=== PATIENT | female | born 1950 | race Caucasian/White ===

== ENCOUNTER → 2018-04-26 | Outpatient (CLI) | payer MEDICARE, MEDICAID ==
[~2018-04-26] MED LIST: OMNIPAQUE 350 MG/ML, 100ML BOTTLE ONE
== END | disposition home or self-care (01) ==
LOC: RAD 15:32
PROVIDERS: ATTEND Nurse Practitioner Family
DX: J90 Pleural effusion, not elsewhere classified (principal); M79.89 Other specified soft tissue disorders
CPT/HCPCS: 70491; Q9967

== ENCOUNTER → 2018-04-28 | Outpatient (CLI) | payer MEDICARE, MEDICAID | END | disposition home or self-care (01) | LOC: RAD 12:26 | PROVIDERS: ATTEND Nurse Practitioner Family | DX: J90 Pleural effusion, not elsewhere classified (principal); L72.3 Sebaceous cyst; N28.89 Other specified disorders of kidney and ureter; K62.89 Other specified diseases of anus and rectum; N28.1 Cyst of kidney, acquired; R18.8 Other ascites; N85.2 Hypertrophy of uterus | CPT/HCPCS: 71260; 74177; Q9967 ==

== ENCOUNTER → 2018-05-04 | Outpatient (CLI) | payer MEDICARE, MEDICAID ==
[~2018-05-04] MED LIST changes: +LIDOCAINE-MPF 1%, 5ML ONE; -OMNIPAQUE 350 MG/ML, 100ML BOTTLE ONE
== END | disposition home or self-care (01) ==
LOC: RAD 14:14
PROVIDERS: ATTEND Nurse Practitioner Family
DX: C41.0 Malignant neoplasm of bones of skull and face (principal)
CPT/HCPCS: 20206; 76942; 88305; 88333; 88341; 88342; G0461

== ENCOUNTER → 2018-05-18 | Outpatient (CLI) | payer MEDICARE, MEDICAID | END | disposition home or self-care (01) | LOC: ROC 10:00 | PROVIDERS: ATTEND Radiology Radiation Oncology | DX: C78.5 Secondary malignant neoplasm of large intestine and rectum (principal) | CPT/HCPCS: G0463 ==

== ENCOUNTER 2018-05-26 09:20 | Inpatient (IN) | payer MEDICARE, MEDICAID ==
[2018-05-25 13:08] LABS: BASOPHILS # (AUTO) 0.03 x10^3/uL (0-0.1); BASOPHILS % (AUTO) 0 % (0-1); EOSINOPHILS # (AUTO) 0.44 x10^3/uL (0-0.4); EOSINOPHILS % (AUTO) 5 % (1-7); LYMPHOCYTES # (AUTO) 1.55 x10^3/uL (1-3.4); LYMPHOCYTES % (AUTO) 16 % (22-44); MD NO; MEAN CORPUSCULAR HEMOGLOBIN 29.2 pg (27.0-34.8); MEAN CORPUSCULAR HGB CONC 33.8 g/dL (32.4-35.8); MEAN CORPUSCULAR VOLUME 86.4 fL (80-100); MEAN PLATELET VOLUME 6.6 fL (7.4-10.4); MONOCYTES # (AUTO) 0.46 x10^3/uL (0.2-0.8); MONOCYTES % (AUTO) 5 % (2-9); NEUTROPHILS # (AUTO) 7.06 x10^3/uL (1.8-6.8); NEUTROPHILS % (AUTO) 74 % (42-75); PLATELET COUNT 459 x10^3/uL (130-400); RED BLOOD COUNT 5.18 x10^6/uL (3.82-5.3); RED CELL DISTRIBUTION WIDTH 15.7 % (9.6-15.2)
[2018-05-25 13:21] LABS: ALBUMIN 3.5 g/dL (3.4-5.0); ANION GAP 11 mmol/L (5-15); CALCIUM 9.4 mg/dL (8.5-10.1); CHLORIDE 101 mmol/L (98-107)
[2018-05-25 13:25] LABS: ALANINE AMINOTRANSFERASE 24 U/L (12-78); ALKALINE PHOSPHATASE 193 U/L (45-117); BILIRUBIN,TOTAL 0.6 mg/dL (0.2-1.0); CREATININE 0.78 mg/dL (0.55-1.02); TOTAL PROTEIN 8.2 g/dL (6.4-8.2)
[~2018-05-26] VITALS: Ht 157.5 cm; Wt 107.8 kg
[~2018-05-26 09:20] MED LIST changes: +CHLO50TA PO; +CHOL500050 PO; +HYDR-3240 PO; +IBUP-1623 PO; +LEVO112T41 PO; -LIDOCAINE-MPF 1%, 5ML ONE; +POTA99TA8 PO; +SILYMARIN PO; +TURMERIC PO; +VENL75CA PO
[2018-05-26] MEDS ORDERED: FENTANYL PF 100 MCG/2ML ONE ×4 (11:13→16:25)
[2018-05-26] MEDS ORDERED: MIDAZOLAM 1 MG/ML, 2ML ONE (11:13)
[2018-05-26] MEDS ORDERED: DEXAMETHASONE 4 MG/ML, 1ML ONE ×2 (11:14)
[2018-05-26] MEDS ORDERED: ROCURONIUM 10MG/ML,5ML ONE (11:14)
[2018-05-26] MEDS ORDERED: SUCCINYLCHOLINE 20 MG/ML, 10ML ONE (11:14)
[2018-05-26] MEDS ORDERED: LACTATED RINGERS 1,000 ML IV SCH (11:56)
[2018-05-26 12:00] VITALS: BP 152/86
[2018-05-26] MEDS ORDERED: HEPARIN 1,000 UNITS/ML, 10ML ONE (13:22)
[2018-05-26] MEDS ORDERED: BUPIVACAINE/PF 0.5% ONE (13:22)
[2018-05-26] MEDS ORDERED: MORPHINE SULFATE 4 MG/ML, 1ML IVPush PRN (14:30)
[2018-05-26] MEDS ORDERED: LORazepam 2 MG/ML, 1ML IVPush PRN (14:30)
[2018-05-26] MEDS ORDERED: DIPHENHYDRAMINE 50 MG/ML, 1ML IVPush PRN (14:30)
[2018-05-26] MEDS ORDERED: PROCHLORPERAZINE 5 MG/ML, 2ML IV PRN (14:30)
[2018-05-26] MEDS ORDERED: MEPERIDINE/PF 25MG/0.5ML IVPush PRN (14:30)
[2018-05-26] MEDS ORDERED: MIDAZOLAM 1 MG/ML, 2ML IV PRN (14:30)
[2018-05-26] MEDS ORDERED: LABETALOL 5MG/ML, 20ML IV PRN (14:30)
[2018-05-26] MEDS ORDERED: hydrALAzine 20 MG/ML, 1ML IV PRN (14:30)
[2018-05-26] MEDS ORDERED: ALBUTEROL/IPRATROPIUM 2.5MG/0.5MG, 3 ML NPPB PRN (14:30)
[2018-05-26] MEDS ORDERED: SCOPOLAMINE PATCH, 1.5MG PATCH.TD72 TD PRN (14:30)
[2018-05-26] MEDS ORDERED: ONDANSETRON 2MG/ML, 2ML ONE (14:49)
[2018-05-26] MEDS ORDERED: NEOSTIGMINE 1 MG/ML, 10ML ONE (15:18)
[2018-05-26] MEDS: FENTANYL PF 100 MCG/2ML IV PRN ×2 (15:43→16:32)
[2018-05-26] MEDS ORDERED: HYDROmorphone 2 MG/ML, 1ML ONE (15:43)
[2018-05-26] MEDS: HYDROmorphone 1 MG/ML, 1ML IV PRN ×5 (15:46→16:45)
[2018-05-26] MEDS ORDERED: LORazepam 2 MG/ML, 1ML ONE (16:17)
[2018-05-26] MEDS ORDERED: MORPHINE SULFATE 4 MG/ML, 1ML IV PRN (18:00)
[2018-05-26] MEDS: D5%-0.45NACL+KCL 20MEQ 1,000 ML IV SCH (18:46)
[2018-05-26] MEDS: MORPHINE 30MG/30ML PCA.SYR IV PRN (18:57)
[2018-05-26 20:04] VITALS: BP 147/74
[2018-05-26 23:56] VITALS: BP 125/75
[2018-05-27 03:06] VITALS: BP 120/67
[2018-05-27] MEDS: D5%-0.45NACL+KCL 20MEQ 1,000 ML IV SCH ×2 (04:38→21:27)
[2018-05-27 05:30] LABS: ALBUMIN 2.8 g/dL (3.4-5.0); ANION GAP 11 mmol/L (5-15); CALCIUM 8.2 mg/dL (8.5-10.1); CHLORIDE 102 mmol/L (98-107)
[2018-05-27 05:33] LABS: BASOPHILS # (AUTO) 0.03 x10^3/uL (0-0.1); BASOPHILS % (AUTO) 0 % (0-1); EOSINOPHILS # (AUTO) 0.12 x10^3/uL (0-0.4); EOSINOPHILS % (AUTO) 1 % (1-7); LYMPHOCYTES # (AUTO) 1.45 x10^3/uL (1-3.4); LYMPHOCYTES % (AUTO) 12 % (22-44); MD NO; MEAN CORPUSCULAR HEMOGLOBIN 28.5 pg (27.0-34.8); MEAN CORPUSCULAR HGB CONC 33.1 g/dL (32.4-35.8); MEAN CORPUSCULAR VOLUME 86.1 fL (80-100); MEAN PLATELET VOLUME 6.7 fL (7.4-10.4); MONOCYTES # (AUTO) 0.77 x10^3/uL (0.2-0.8); MONOCYTES % (AUTO) 7 % (2-9); NEUTROPHILS # (AUTO) 9.26 x10^3/uL (1.8-6.8); NEUTROPHILS % (AUTO) 80 % (42-75); PLATELET COUNT 369 x10^3/uL (130-400); RED BLOOD COUNT 4.44 x10^6/uL (3.82-5.3); RED CELL DISTRIBUTION WIDTH 15.9 % (9.6-15.2)
[2018-05-27 05:35] LABS: ALANINE AMINOTRANSFERASE 18 U/L (12-78); ALKALINE PHOSPHATASE 153 U/L (45-117); BILIRUBIN,TOTAL 0.5 mg/dL (0.2-1.0); CREATININE 0.61 mg/dL (0.55-1.02); TOTAL PROTEIN 6.7 g/dL (6.4-8.2)
[2018-05-27] MEDS: LEVOTHYROXINE 50 MCG TABLET PO SCH (06:00)
[2018-05-27 08:14] VITALS: BP 123/69
[2018-05-27] MEDS ORDERED: POTASSIUM CHLORIDE 40 MEQ in SODIUM CHLORIDE 0.9% 500 ML IV SCH (08:30)
[2018-05-27] MEDS: CHLORTHALIDONE 25 MG TABLET PO SCH (08:45)
[2018-05-27] MEDS: ENOXAPARIN 30 MG/0.3 ML SQ SCH ×2 (08:46→20:30)
[2018-05-27] MEDS ORDERED: VENLAFAXINE 75 MG CAP ER PO SCH (09:00)
[2018-05-27] MEDS: MORPHINE 30MG/30ML PCA.SYR IV PRN ×2 (10:30→23:54)
[2018-05-27 15:54] VITALS: BP 130/69
[2018-05-27] MEDS: VENLAFAXINE 75 MG CAP ER PO SCH (20:30)
[2018-05-27 20:44] VITALS: BP 136/69
[2018-05-27] MEDS: DIPHENHYDRAMINE 25 MG CAPSULE PO PRN (21:27)
[2018-05-27] MEDS: ONDANSETRON 2MG/ML, 2ML IV PRN (22:57)
[2018-05-28 01:30] VITALS: BP 161/87
[2018-05-28] MEDS: LEVOTHYROXINE 50 MCG TABLET PO SCH (05:27)
[2018-05-28 05:42] LABS: ANION GAP 9 mmol/L (5-15); CALCIUM 8.4 mg/dL (8.5-10.1); CHLORIDE 101 mmol/L (98-107)
[2018-05-28 05:43] LABS: CREATININE 0.59 mg/dL (0.55-1.02)
[2018-05-28] MEDS: D5%-0.45NACL+KCL 20MEQ 1,000 ML IV SCH ×2 (06:22→17:17)
[2018-05-28] MEDS: ONDANSETRON 2MG/ML, 2ML IV PRN (06:31)
[2018-05-28 08:35] VITALS: BP 137/74
[2018-05-28] MEDS: CHLORTHALIDONE 25 MG TABLET PO SCH (08:49)
[2018-05-28] MEDS: ENOXAPARIN 30 MG/0.3 ML SQ SCH ×2 (08:50→20:15)
[2018-05-28] MEDS: POTASSIUM CHLORIDE 20 MEQ TAB.ER.PRT PO SCH ×2 (11:54→17:16)
[2018-05-28 15:50] VITALS: BP 160/77
[2018-05-28 19:16] VITALS: BP 147/75
[2018-05-28] MEDS: VENLAFAXINE 75 MG CAP ER PO SCH (20:16)
[2018-05-28] MEDS: DIPHENHYDRAMINE 25 MG CAPSULE PO PRN (21:08)
[2018-05-29 02:04] VITALS: BP 142/78
[2018-05-29 05:56] LABS: ANION GAP 10 mmol/L (5-15); CALCIUM 8.3 mg/dL (8.5-10.1); CHLORIDE 100 mmol/L (98-107)
[2018-05-29 05:58] LABS: CREATININE 0.44 mg/dL (0.55-1.02)
[2018-05-29] MEDS: LEVOTHYROXINE 50 MCG TABLET PO SCH (06:00)
[2018-05-29] MEDS: D5%-0.45NACL+KCL 20MEQ 1,000 ML IV SCH (06:10)
[2018-05-29 08:02] VITALS: BP 139/76
[2018-05-29] MEDS: CHLORTHALIDONE 25 MG TABLET PO SCH (08:06)
[2018-05-29] MEDS: ENOXAPARIN 30 MG/0.3 ML SQ SCH ×2 (08:06→20:42)
[2018-05-29] MEDS: POTASSIUM CHLORIDE 20 MEQ TAB.ER.PRT PO SCH ×3 (08:06→17:05)
[2018-05-29] MEDS ORDERED: POTASSIUM CHLORIDE 30 MEQ in SODIUM CHLORIDE 0.9% 500 ML IV ONE (12:00)
[2018-05-29 13:29] VITALS: BP 147/77
[2018-05-29] MEDS: OXYcodone/APAP 10/325MG TABLET PO PRN ×2 (14:20→20:43)
[2018-05-29] MEDS: D5%-0.45NACL+KCL 40MEQ 1,000 ML IV SCH (15:44)
[2018-05-29 20:15] VITALS: BP 150/87
[2018-05-29] MEDS: VENLAFAXINE 75 MG CAP ER PO SCH (20:42)
[2018-05-30 03:20] VITALS: BP 165/94
[2018-05-30] MEDS: OXYcodone/APAP 10/325MG TABLET PO PRN ×4 (04:26→23:21)
[2018-05-30] MEDS: D5%-0.45NACL+KCL 40MEQ 1,000 ML IV SCH ×2 (04:53→23:36)
[2018-05-30] MEDS ORDERED: LEVOTHYROXINE 25 MCG TABLET ONE (05:34)
[2018-05-30] MEDS: LEVOTHYROXINE 50 MCG TABLET PO SCH (05:36)
[2018-05-30 07:37] VITALS: BP 162/87
[2018-05-30] MEDS: CHLORTHALIDONE 25 MG TABLET PO SCH (07:57)
[2018-05-30] MEDS: ENOXAPARIN 30 MG/0.3 ML SQ SCH ×2 (07:57→19:59)
[2018-05-30] MEDS: POTASSIUM CHLORIDE 20 MEQ TAB.ER.PRT PO SCH ×3 (09:43→17:10)
[2018-05-30] MEDS ORDERED: POTASSIUM CHLORIDE 40 MEQ in SODIUM CHLORIDE 0.9% 500 ML IV ONE (10:30)
[2018-05-30 12:58] VITALS: BP 154/81
[2018-05-30 19:37] VITALS: BP 151/84
[2018-05-30] MEDS: VENLAFAXINE 75 MG CAP ER PO SCH (19:59)
[2018-05-31 02:19] VITALS: BP 127/58
[2018-05-31] MEDS ORDERED: LEVOTHYROXINE 25 MCG TABLET ONE (05:36)
[2018-05-31] MEDS: OXYcodone/APAP 10/325MG TABLET PO PRN ×4 (05:38→23:12)
[2018-05-31] MEDS: LEVOTHYROXINE 50 MCG TABLET PO SCH (05:38)
[2018-05-31 05:43] LABS: ANION GAP 8 mmol/L (5-15); CALCIUM 8.7 mg/dL (8.5-10.1); CHLORIDE 102 mmol/L (98-107); CREATININE 0.51 mg/dL (0.55-1.02)
[2018-05-31 06:59] VITALS: BP 146/79
[2018-05-31 08:12] VITALS: BP 154/86
[2018-05-31] MEDS: ENOXAPARIN 30 MG/0.3 ML SQ SCH ×2 (08:14→21:32)
[2018-05-31] MEDS: POTASSIUM CHLORIDE 20 MEQ TAB.ER.PRT PO SCH ×3 (08:14→17:46)
[2018-05-31] MEDS: CHLORTHALIDONE 25 MG TABLET PO SCH (08:15)
[2018-05-31] MEDS: SODIUM CHLORIDE FLUSH 10ML SYR IVF SCH ×2 (11:39→21:32)
[2018-05-31 13:36] VITALS: BP 146/84
[2018-05-31 20:33] VITALS: BP 132/81
[2018-05-31] MEDS: VENLAFAXINE 75 MG CAP ER PO SCH (21:32)
[2018-06-01 02:41] VITALS: BP 136/73
[2018-06-01 05:12] LABS: ANION GAP 12 mmol/L (5-15); CALCIUM 8.8 mg/dL (8.5-10.1); CHLORIDE 100 mmol/L (98-107); CREATININE 0.51 mg/dL (0.55-1.02)
[2018-06-01] MEDS: LEVOTHYROXINE 50 MCG TABLET PO SCH (06:09)
[2018-06-01 07:53] VITALS: BP 157/80
[2018-06-01] MEDS: POTASSIUM CHLORIDE 20 MEQ TAB.ER.PRT PO SCH ×3 (07:57→16:53)
[2018-06-01] MEDS: CHLORTHALIDONE 25 MG TABLET PO SCH (07:58)
[2018-06-01] MEDS: ENOXAPARIN 30 MG/0.3 ML SQ SCH ×2 (07:58→19:44)
[2018-06-01] MEDS: SODIUM CHLORIDE FLUSH 10ML SYR IVF SCH ×2 (08:00→19:44)
[2018-06-01] MEDS: OXYcodone/APAP 10/325MG TABLET PO PRN ×3 (11:08→21:57)
[2018-06-01 14:05] VITALS: BP 138/70
[2018-06-01] MEDS: MORPHINE SULFATE 4 MG/ML, 1ML IV PRN ×3 (15:51→23:06)
[2018-06-01] MEDS: D5%-0.45NACL+KCL 20MEQ 1,000 ML IV SCH (16:51)
[2018-06-01] MEDS: VENLAFAXINE 75 MG CAP ER PO SCH (19:44)
[2018-06-01 20:21] VITALS: BP 108/75
[2018-06-02 02:20] VITALS: BP 112/78
[2018-06-02] MEDS: MORPHINE SULFATE 4 MG/ML, 1ML IV PRN ×5 (02:27→16:05)
[2018-06-02] MEDS: D5%-0.45NACL+KCL 20MEQ 1,000 ML IV SCH ×2 (02:33→12:41)
[2018-06-02] MEDS: LEVOTHYROXINE 50 MCG TABLET PO SCH ×2 (04:32→08:52)
[2018-06-02 07:05] VITALS: BP 167/82
[2018-06-02 07:58] VITALS: BP 136/75
[2018-06-02] MEDS: POTASSIUM CHLORIDE 20 MEQ TAB.ER.PRT PO SCH ×3 (08:00→17:00)
[2018-06-02] MEDS: OXYcodone/APAP 10/325MG TABLET PO PRN (08:01)
[2018-06-02] MEDS: CHLORTHALIDONE 25 MG TABLET PO SCH (08:03)
[2018-06-02] MEDS: SODIUM CHLORIDE FLUSH 10ML SYR IVF SCH ×2 (08:06→21:00)
[2018-06-02] MEDS: ENOXAPARIN 30 MG/0.3 ML SQ SCH (08:06)
[2018-06-02] MEDS ORDERED: LEVOTHYROXINE 25 MCG TABLET ONE (08:45)
[2018-06-02] MEDS ORDERED: LEVOTHYROXINE 50 MCG TABLET PO ONE (09:30)
[2018-06-02] MEDS ORDERED: PHENYLEPHRINE 10 MG/ML ONE (09:53)
[2018-06-02 09:59] LABS: BASOPHILS # (AUTO) 0.01 x10^3/uL (0-0.1); BASOPHILS % (AUTO) 0 % (0-1); EOSINOPHILS # (AUTO) 0.39 x10^3/uL (0-0.4); EOSINOPHILS % (AUTO) 4 % (1-7); LYMPHOCYTES % (AUTO) 12 % (22-44); MD NO; MEAN CORPUSCULAR HEMOGLOBIN 29.3 pg (27.0-34.8); MEAN CORPUSCULAR HGB CONC 33.9 g/dL (32.4-35.8); MEAN CORPUSCULAR VOLUME 86.2 fL (80-100); MEAN PLATELET VOLUME 6.7 fL (7.4-10.4); MONOCYTES # (AUTO) 0.61 x10^3/uL (0.2-0.8); MONOCYTES % (AUTO) 6 % (2-9); NEUTROPHILS # (AUTO) 7.39 x10^3/uL (1.8-6.8); NEUTROPHILS % (AUTO) 78 % (42-75); PLATELET COUNT 282 x10^3/uL (130-400); RED BLOOD COUNT 3.85 x10^6/uL (3.82-5.3); RED CELL DISTRIBUTION WIDTH 15.8 % (9.6-15.2)
[2018-06-02 10:12] LABS: ANION GAP 9 mmol/L (5-15); CALCIUM 8.2 mg/dL (8.5-10.1); CHLORIDE 101 mmol/L (98-107)
[2018-06-02 10:21] LABS: CREATININE 0.46 mg/dL (0.55-1.02)
[2018-06-02 13:30] VITALS: BP 149/85
[2018-06-02] MEDS ORDERED: MIDAZOLAM 1 MG/ML, 2ML ONE ×2 (16:17→19:34)
[2018-06-02] MEDS ORDERED: FENTANYL PF 250 MCG/5ML ONE (16:18)
[2018-06-02] MEDS ORDERED: CEFOTETAN PMX 2GM/50ML 50 ML ONE (16:54)
[2018-06-02] MEDS ORDERED: MEPERIDINE/PF 25MG/0.5ML IVPush PRN (17:30)
[2018-06-02] MEDS ORDERED: SCOPOLAMINE PATCH, 1.5MG PATCH.TD72 TD PRN (17:30)
[2018-06-02] MEDS ORDERED: ONDANSETRON 2MG/ML, 2ML IV PRN ×2 (17:30→22:00)
[2018-06-02] MEDS ORDERED: ACETAMINOPHEN 325 MG TABLET PO PRN (17:30)
[2018-06-02] MEDS ORDERED: LABETALOL 5MG/ML, 20ML IV PRN (17:30)
[2018-06-02] MEDS ORDERED: OXYcodone 5 MG/5 ML ORAL.SOL UDC PO PRN (17:30)
[2018-06-02] MEDS ORDERED: hydrALAzine 20 MG/ML, 1ML IV PRN (17:30)
[2018-06-02] MEDS ORDERED: MIDAZOLAM 1 MG/ML, 2ML IV PRN (17:30)
[2018-06-02] MEDS ORDERED: ALBUTEROL/IPRATROPIUM 2.5MG/0.5MG, 3 ML NPPB PRN (17:30)
[2018-06-02] MEDS ORDERED: EPHEDRINE 50 MG/ML, 1ML IM PRN (17:30)
[2018-06-02] MEDS ORDERED: PROPOFOL 10 MG/ML, 20ML ONE (18:56)
[2018-06-02] MEDS ORDERED: ROCURONIUM 10MG/ML,5ML ONE (18:56)
[2018-06-02] MEDS ORDERED: GLYCOPYRROLATE 0.2MG/1ML, 5ML ONE (18:56)
[2018-06-02] MEDS ORDERED: NEOSTIGMINE 1 MG/ML, 10ML ONE (18:56)
[2018-06-02] MEDS ORDERED: DEXAMETHASONE 4 MG/ML, 1ML ONE (18:56)
[2018-06-02] MEDS ORDERED: SUCCINYLCHOLINE 20 MG/ML, 10ML ONE (18:56)
[2018-06-02] MEDS ORDERED: ONDANSETRON 2MG/ML, 2ML ONE (18:56)
[2018-06-02] MEDS ORDERED: BUPIVACAINE/PF 0.5% ONE (18:57)
[2018-06-02] MEDS ORDERED: FENTANYL PF 100 MCG/2ML ONE ×2 (19:22→19:41)
[2018-06-02] MEDS ORDERED: ACETAMINOPHEN 650 MG/20.3 ML UDC ONE (19:22)
[2018-06-02] MEDS ORDERED: OXYcodone 5 MG/5 ML ORAL.SOL UDC ONE (19:22)
[2018-06-02] MEDS: FENTANYL PF 100 MCG/2ML IV PRN ×4 (19:25→19:54)
[2018-06-02] MEDS ORDERED: HYDROmorphone 2 MG/ML, 1ML ONE ×2 (19:26→20:05)
[2018-06-02] MEDS: HYDROmorphone 2 MG/ML, 1ML IV PRN ×5 (19:28→20:36)
[2018-06-02] MEDS ORDERED: MEPERIDINE/PF 50 MG/ML ONE (20:05)
[2018-06-02 21:00] VITALS: BP 107/69
[2018-06-02] MEDS ORDERED: D5%-0.45NACL+KCL 40MEQ 1,000 ML IV SCH (21:30)
[2018-06-02] MEDS: FAMOTIDINE 20 MG/2 ML IVPush SCH (22:22)
[2018-06-02 23:46] VITALS: BP 104/61
[2018-06-03] MEDS: MORPHINE SULFATE 4 MG/ML, 1ML IV PRN ×2 (01:32→03:40)
[2018-06-03 01:39] VITALS: BP 116/64
[2018-06-03] MEDS: CEFOTETAN PMX 2GM/50ML 50 ML IV SCH ×2 (03:58→15:19)
[2018-06-03 04:05] VITALS: BP 110/65
[2018-06-03 06:05] LABS: BASOPHILS % (AUTO) 0 % (0-1); EOSINOPHILS # (AUTO) 0.01 x10^3/uL (0-0.4); EOSINOPHILS % (AUTO) 0 % (1-7); LYMPHOCYTES # (AUTO) 0.95 x10^3/uL (1-3.4); LYMPHOCYTES % (AUTO) 6 % (22-44); MD NO; MEAN CORPUSCULAR HEMOGLOBIN 28.9 pg (27.0-34.8); MEAN CORPUSCULAR HGB CONC 33.5 g/dL (32.4-35.8); MEAN CORPUSCULAR VOLUME 86.3 fL (80-100); MEAN PLATELET VOLUME 7.5 fL (7.4-10.4); MONOCYTES # (AUTO) 0.58 x10^3/uL (0.2-0.8); MONOCYTES % (AUTO) 4 % (2-9); NEUTROPHILS # (AUTO) 14.84 x10^3/uL (1.8-6.8); NEUTROPHILS % (AUTO) 91 % (42-75); PLATELET COUNT 307 x10^3/uL (130-400); RED BLOOD COUNT 4.12 x10^6/uL (3.82-5.3); RED CELL DISTRIBUTION WIDTH 15.9 % (9.6-15.2)
[2018-06-03 06:10] LABS: ALBUMIN 1.6 g/dL (3.4-5.0); ANION GAP 9 mmol/L (5-15); CALCIUM 7.8 mg/dL (8.5-10.1); CHLORIDE 102 mmol/L (98-107)
[2018-06-03 06:15] LABS: ALANINE AMINOTRANSFERASE 15 U/L (12-78); ALKALINE PHOSPHATASE 127 U/L (45-117); BILIRUBIN,TOTAL 0.3 mg/dL (0.2-1.0); CREATININE 1.15 mg/dL (0.55-1.02); TOTAL PROTEIN 5.7 g/dL (6.4-8.2)
[2018-06-03] MEDS: LEVOTHYROXINE 112 MCG TABLET PO SCH (06:47)
[2018-06-03] MEDS: SODIUM CHLORIDE FLUSH 10ML SYR IVF SCH ×2 (08:16→22:28)
[2018-06-03 09:13] VITALS: BP 110/70
[2018-06-03] MEDS: FAMOTIDINE 20 MG/2 ML IVPush SCH ×2 (10:03→22:27)
[2018-06-03] MEDS: D5%-0.45NACL+KCL 20MEQ 1,000 ML IV SCH ×2 (11:30→23:35)
[2018-06-03 15:35] VITALS: BP 118/70
[2018-06-03] MEDS ORDERED: SODIUM CHLORIDE 0.9%, 500ML IVBOLUS ONE (18:00)
[2018-06-03 20:00] VITALS: BP 110/64
[2018-06-03] MEDS: VENLAFAXINE 75 MG CAP ER PO SCH (22:27)
[2018-06-03] MEDS: CHLORTHALIDONE 25 MG TABLET PO SCH (23:14)
[2018-06-04 01:27] VITALS: BP 131/73
[2018-06-04 04:05] VITALS: BP 128/72
[2018-06-04] MEDS: CEFOTETAN PMX 2GM/50ML 50 ML IV SCH ×2 (04:11→15:55)
[2018-06-04 05:25] LABS: BASOPHILS % (AUTO) 0 % (0-1); EOSINOPHILS # (AUTO) 0.07 x10^3/uL (0-0.4); EOSINOPHILS % (AUTO) 1 % (1-7); LYMPHOCYTES # (AUTO) 0.95 x10^3/uL (1-3.4); LYMPHOCYTES % (AUTO) 8 % (22-44); MD NO; MEAN CORPUSCULAR HEMOGLOBIN 29.3 pg (27.0-34.8); MEAN CORPUSCULAR HGB CONC 33.8 g/dL (32.4-35.8); MEAN CORPUSCULAR VOLUME 86.8 fL (80-100); MEAN PLATELET VOLUME 7.2 fL (7.4-10.4); MONOCYTES # (AUTO) 0.73 x10^3/uL (0.2-0.8); MONOCYTES % (AUTO) 6 % (2-9); NEUTROPHILS # (AUTO) 10.61 x10^3/uL (1.8-6.8); NEUTROPHILS % (AUTO) 86 % (42-75); PLATELET COUNT 336 x10^3/uL (130-400); RED BLOOD COUNT 3.59 x10^6/uL (3.82-5.3); RED CELL DISTRIBUTION WIDTH 15.8 % (9.6-15.2)
[2018-06-04 05:34] LABS: CHLORIDE 103 mmol/L (98-107)
[2018-06-04 05:37] LABS: ANION GAP 10 mmol/L (5-15); CALCIUM 7.5 mg/dL (8.5-10.1); CREATININE 1.09 mg/dL (0.55-1.02)
[2018-06-04] MEDS: LEVOTHYROXINE 112 MCG TABLET PO SCH (06:08)
[2018-06-04 08:09] VITALS: BP 130/76
[2018-06-04] MEDS: FAMOTIDINE 20 MG/2 ML IVPush SCH (09:32)
[2018-06-04] MEDS: CHLORTHALIDONE 25 MG TABLET PO SCH (09:32)
[2018-06-04] MEDS: SODIUM CHLORIDE FLUSH 10ML SYR IVF SCH ×2 (09:33→20:11)
[2018-06-04] MEDS ORDERED: MORPHINE SULFATE 4 MG/ML, 1ML IV PRN (11:00)
[2018-06-04] MEDS: OXYcodone/APAP 5/325MG TABLET PO PRN ×4 (11:57→22:25)
[2018-06-04] MEDS: D5%-0.45NACL+KCL 20MEQ 1,000 ML IV SCH (13:34)
[2018-06-04 15:32] VITALS: BP 94/65
[2018-06-04 19:10] VITALS: BP 133/75
[2018-06-04] MEDS: POTASSIUM CHLORIDE 20 MEQ TAB.ER.PRT PO SCH (20:09)
[2018-06-04] MEDS: VENLAFAXINE 75 MG CAP ER PO SCH (20:10)
[2018-06-05 00:33] VITALS: BP 162/82
[2018-06-05] MEDS: OXYcodone/APAP 5/325MG TABLET PO PRN ×5 (03:24→21:05)
[2018-06-05] MEDS: D5%-0.45NACL+KCL 20MEQ 1,000 ML IV SCH ×2 (03:28→22:13)
[2018-06-05] MEDS: CEFOTETAN PMX 2GM/50ML 50 ML IV SCH ×2 (04:25→16:45)
[2018-06-05 05:25] LABS: ANION GAP 9 mmol/L (5-15); CALCIUM 7.9 mg/dL (8.5-10.1); CHLORIDE 104 mmol/L (98-107); CREATININE 0.92 mg/dL (0.55-1.02)
[2018-06-05 05:40] LABS: BASOPHILS # (AUTO) 0.01 x10^3/uL (0-0.1); BASOPHILS % (AUTO) 0 % (0-1); EOSINOPHILS # (AUTO) 0.17 x10^3/uL (0-0.4); EOSINOPHILS % (AUTO) 2 % (1-7); LYMPHOCYTES # (AUTO) 0.75 x10^3/uL (1-3.4); LYMPHOCYTES % (AUTO) 9 % (22-44); MD NO; MEAN CORPUSCULAR HEMOGLOBIN 28.6 pg (27.0-34.8); MEAN CORPUSCULAR HGB CONC 33.7 g/dL (32.4-35.8); MEAN PLATELET VOLUME 6.9 fL (7.4-10.4); MONOCYTES # (AUTO) 0.45 x10^3/uL (0.2-0.8); MONOCYTES % (AUTO) 5 % (2-9); NEUTROPHILS # (AUTO) 7.39 x10^3/uL (1.8-6.8); NEUTROPHILS % (AUTO) 84 % (42-75); PLATELET COUNT 338 x10^3/uL (130-400); RED BLOOD COUNT 3.35 x10^6/uL (3.82-5.3); RED CELL DISTRIBUTION WIDTH 15.7 % (9.6-15.2)
[2018-06-05] MEDS: LEVOTHYROXINE 112 MCG TABLET PO SCH (06:04)
[2018-06-05] MEDS: CHLORTHALIDONE 25 MG TABLET PO SCH (08:20)
[2018-06-05] MEDS: SODIUM CHLORIDE FLUSH 10ML SYR IVF SCH ×2 (08:20→21:00)
[2018-06-05] MEDS: POTASSIUM CHLORIDE 20 MEQ TAB.ER.PRT PO SCH ×2 (08:20→21:05)
[2018-06-05 09:17] VITALS: BP 160/75
[2018-06-05] MEDS ORDERED: POTASSIUM CHLORIDE 20 MEQ TAB.ER.PRT PO ONE (14:00)
[2018-06-05 15:59] VITALS: BP 154/80
[2018-06-05 19:57] VITALS: BP 133/70
[2018-06-05] MEDS: VENLAFAXINE 75 MG CAP ER PO SCH (21:05)
[2018-06-05] MEDS: FAMOTIDINE 20 MG TABLET PO SCH (21:05)
[2018-06-06 01:32] VITALS: BP 150/76
[2018-06-06] MEDS: OXYcodone/APAP 5/325MG TABLET PO PRN ×6 (02:41→23:47)
[2018-06-06] MEDS: LEVOTHYROXINE 112 MCG TABLET PO SCH (04:59)
[2018-06-06] MEDS: CEFOTETAN PMX 2GM/50ML 50 ML IV SCH ×2 (04:59→16:28)
[2018-06-06 05:37] LABS: ANION GAP 8 mmol/L (5-15); CALCIUM 8.9 mg/dL (8.5-10.1); CHLORIDE 101 mmol/L (98-107)
[2018-06-06 05:39] LABS: CREATININE 0.55 mg/dL (0.55-1.02)
[2018-06-06 07:10] VITALS: BP 161/86
[2018-06-06] MEDS ORDERED: POTASSIUM CHLORIDE 20 MEQ TAB.ER.PRT PO ONE (09:00)
[2018-06-06] MEDS: POTASSIUM CHLORIDE 20 MEQ TAB.ER.PRT PO SCH (09:21)
[2018-06-06] MEDS: POTASSIUM CHLORIDE 10 MEQ TABLET.ER PO SCH ×2 (10:10→22:01)
[2018-06-06] MEDS: FAMOTIDINE 20 MG TABLET PO SCH ×2 (10:10→22:00)
[2018-06-06] MEDS: CHLORTHALIDONE 25 MG TABLET PO SCH (10:10)
[2018-06-06] MEDS: SODIUM CHLORIDE FLUSH 10ML SYR IVF SCH ×2 (10:10→22:01)
[2018-06-06 13:34] VITALS: BP 149/82
[2018-06-06 18:35] VITALS: BP 162/80
[2018-06-06] MEDS ORDERED: POTASSIUM CHLORIDE 20 MEQ TAB.ER.PRT PO SCH (21:00)
[2018-06-06] MEDS: VENLAFAXINE 75 MG CAP ER PO SCH (22:00)
[2018-06-06] MEDS: D5%-0.45NACL+KCL 20MEQ 1,000 ML IV SCH (22:04)
[2018-06-07 01:26] VITALS: BP 147/77
[2018-06-07] MEDS: OXYcodone/APAP 5/325MG TABLET PO PRN ×5 (04:02→20:07)
[2018-06-07 05:22] LABS: ANION GAP 8 mmol/L (5-15); CALCIUM 8.6 mg/dL (8.5-10.1); CHLORIDE 102 mmol/L (98-107)
[2018-06-07 05:23] LABS: CREATININE 0.59 mg/dL (0.55-1.02)
[2018-06-07 05:32] LABS: BASOPHILS # (AUTO) 0.03 x10^3/uL (0-0.1); BASOPHILS % (AUTO) 0 % (0-1); EOSINOPHILS # (AUTO) 0.32 x10^3/uL (0-0.4); EOSINOPHILS % (AUTO) 3 % (1-7); LYMPHOCYTES # (AUTO) 0.96 x10^3/uL (1-3.4); LYMPHOCYTES % (AUTO) 10 % (22-44); MD NO; MEAN CORPUSCULAR HEMOGLOBIN 28.7 pg (27.0-34.8); MEAN CORPUSCULAR VOLUME 84.5 fL (80-100); MEAN PLATELET VOLUME 6.4 fL (7.4-10.4); MONOCYTES # (AUTO) 0.74 x10^3/uL (0.2-0.8); MONOCYTES % (AUTO) 8 % (2-9); NEUTROPHILS # (AUTO) 7.78 x10^3/uL (1.8-6.8); NEUTROPHILS % (AUTO) 79 % (42-75); PLATELET COUNT 443 x10^3/uL (130-400); RED BLOOD COUNT 3.53 x10^6/uL (3.82-5.3)
[2018-06-07] MEDS: LEVOTHYROXINE 112 MCG TABLET PO SCH (05:38)
[2018-06-07] MEDS: CEFOTETAN PMX 2GM/50ML 50 ML IV SCH ×2 (05:38→17:10)
[2018-06-07 07:52] VITALS: BP 170/90
[2018-06-07] MEDS: FAMOTIDINE 20 MG TABLET PO SCH ×2 (08:17→20:07)
[2018-06-07] MEDS: POTASSIUM CHLORIDE 10 MEQ TABLET.ER PO SCH ×2 (08:17→20:07)
[2018-06-07] MEDS: CHLORTHALIDONE 25 MG TABLET PO SCH (08:17)
[2018-06-07] MEDS: SODIUM CHLORIDE FLUSH 10ML SYR IVF SCH ×2 (08:20→20:07)
[2018-06-07 09:15] VITALS: BP 156/82
[2018-06-07 13:17] VITALS: BP 159/86
[2018-06-07] MEDS: D5%-0.45NACL+KCL 20MEQ 1,000 ML IV SCH (17:11)
[2018-06-07 19:28] VITALS: BP 160/81
[2018-06-07] MEDS: VENLAFAXINE 75 MG CAP ER PO SCH (20:07)
[2018-06-08] MEDS: OXYcodone/APAP 5/325MG TABLET PO PRN ×3 (00:39→08:44)
[2018-06-08 01:30] VITALS: BP 163/87
[2018-06-08] MEDS: CEFOTETAN PMX 2GM/50ML 50 ML IV SCH (04:48)
[2018-06-08 06:03] LABS: BASOPHILS # (AUTO) 0.01 x10^3/uL (0-0.1); BASOPHILS % (AUTO) 0 % (0-1); EOSINOPHILS # (AUTO) 0.35 x10^3/uL (0-0.4); EOSINOPHILS % (AUTO) 3 % (1-7); LYMPHOCYTES # (AUTO) 1.09 x10^3/uL (1-3.4); LYMPHOCYTES % (AUTO) 10 % (22-44); MD NO; MEAN CORPUSCULAR HEMOGLOBIN 28.6 pg (27.0-34.8); MEAN CORPUSCULAR VOLUME 84.1 fL (80-100); MEAN PLATELET VOLUME 6.6 fL (7.4-10.4); MONOCYTES # (AUTO) 0.73 x10^3/uL (0.2-0.8); MONOCYTES % (AUTO) 7 % (2-9); NEUTROPHILS # (AUTO) 8.79 x10^3/uL (1.8-6.8); NEUTROPHILS % (AUTO) 80 % (42-75); PLATELET COUNT 493 x10^3/uL (130-400); RED BLOOD COUNT 3.69 x10^6/uL (3.82-5.3); RED CELL DISTRIBUTION WIDTH 16.2 % (9.6-15.2)
[2018-06-08] MEDS: LEVOTHYROXINE 112 MCG TABLET PO SCH (06:03)
[2018-06-08 06:09] LABS: ANION GAP 10 mmol/L (5-15); CALCIUM 8.3 mg/dL (8.5-10.1); CHLORIDE 102 mmol/L (98-107)
[2018-06-08 06:11] LABS: CREATININE 1.09 mg/dL (0.55-1.02)
[2018-06-08 08:09] VITALS: BP 162/87
[2018-06-08] MEDS: POTASSIUM CHLORIDE 10 MEQ TABLET.ER PO SCH (08:44)
[2018-06-08] MEDS: CHLORTHALIDONE 25 MG TABLET PO SCH (08:44)
[2018-06-08] MEDS: FAMOTIDINE 20 MG TABLET PO SCH (08:44)
[2018-06-08] MEDS: SODIUM CHLORIDE FLUSH 10ML SYR IVF SCH (08:45)
[2018-06-08] MEDS ORDERED: OXYC-302 PO (10:00)
[2018-06-08 11:30] VITALS: BP 158/84
== END 2018-06-08 12:25 | disposition home health service (06) | DRG 329 ==
LOC: ORIP 10:58 → EDSTATUS 13:00 → 4NOR 17:12 → DCLOUNGE 06-08 12:15
PROVIDERS: ADMIT Surgery; ATTEND Surgery
PROC: 02HV33Z Insertion of Infusion Device into Superior Vena Cava, Percutaneous Approach (ICD-10-PCS; principal; 2018-05-26 13:00)
PROC: 0D1N0Z4 Bypass Sigmoid Colon to Cutaneous, Open Approach (ICD-10-PCS; 2018-05-26 13:00)
PROC: 0DBN0ZZ Excision of Sigmoid Colon, Open Approach (ICD-10-PCS; 2018-06-02)
DX: C18.9 Malignant neoplasm of colon, unspecified (principal); E43 Unspecified severe protein-calorie malnutrition; R71.0 Precipitous drop in hematocrit; Z68.41 Body mass index [BMI] 40.0-44.9, adult; D49.519 Neoplasm of unspecified behavior of unspecified kidney; E66.9 Obesity, unspecified; E03.9 Hypothyroidism, unspecified; I10 Essential (primary) hypertension; E87.6 Hypokalemia
CPT/HCPCS: 36415; 71045; 77001; 80048; 80053; 85025; 86850; 86900; 88304; 88305; 88341; 88342; 93005; G0378; J1100; J1170; J1644; J1650; J2175; J2250; J2270; J2405; J2704; J2710; J3010; J3480; J3490; C1788; G0461; J0330; J2060; J2370; J7040; J7120; Q0163

== ENCOUNTER → 2018-06-29 | Outpatient (CLI) | payer MEDICARE, MEDICAID ==
[~2018-06-29] MED LIST changes: +OXYC-302 PO
== END | disposition home or self-care (01) ==
LOC: WOUND 15:06
PROVIDERS: ATTEND Nurse Practitioner Family
DX: T81.31XA Disruption of external operation (surgical) wound, not elsewhere classified, initial encounter (principal); E03.9 Hypothyroidism, unspecified; E66.01 Morbid (severe) obesity due to excess calories; I10 Essential (primary) hypertension; F32.9 Major depressive disorder, single episode, unspecified; Z68.38 Body mass index [BMI] 38.0-38.9, adult; Z85.038 Personal history of other malignant neoplasm of large intestine; Z85.048 Personal history of other malignant neoplasm of rectum, rectosigmoid junction, and anus; Y83.8 Other surgical procedures as the cause of abnormal reaction of the patient, or of later complication, without mention of misadventure at the time of the procedure; Y92.89 Other specified places as the place of occurrence of the external cause
CPT/HCPCS: 11042; 97605; G0463

== ENCOUNTER → 2018-07-05 | Outpatient (CLI) | payer MEDICARE, MEDICAID | END | disposition home or self-care (01) | LOC: WOUND 15:05 | PROVIDERS: ATTEND Internal Medicine | DX: T81.31XA Disruption of external operation (surgical) wound, not elsewhere classified, initial encounter (principal); E03.9 Hypothyroidism, unspecified; E66.01 Morbid (severe) obesity due to excess calories; I10 Essential (primary) hypertension; F32.9 Major depressive disorder, single episode, unspecified; Z68.38 Body mass index [BMI] 38.0-38.9, adult; Z85.038 Personal history of other malignant neoplasm of large intestine; Z85.048 Personal history of other malignant neoplasm of rectum, rectosigmoid junction, and anus; Y83.8 Other surgical procedures as the cause of abnormal reaction of the patient, or of later complication, without mention of misadventure at the time of the procedure; Y92.89 Other specified places as the place of occurrence of the external cause | CPT/HCPCS: G0463 ==

== ENCOUNTER 2018-07-22 20:36 | Inpatient (IN) | payer MEDICARE, MEDICAID ==
[~2018-07-22] VITALS: Ht 157.5 cm; Wt 94.6 kg
[~2018-07-22 20:36] MED LIST changes: +FENT1PAT74 TD; +FLUC100T PO; +GABA-826 PO; +PANT40TA5 PO; +SUCR1ORA5 PO
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
--- NOTE | 2018-07-22 22:00 | NUR ---
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 CLAVE CHANGED USING STERILE TECHNIQUE PER POLICY. LABS SENT. AWAITING LABS AND DISPO.
[2018-07-22 22:19] LABS: ALANINE AMINOTRANSFERASE 27 U/L (12-78); ALBUMIN 1.9 g/dL (3.4-5.0); ANION GAP 9 mmol/L (5-15); CALCIUM 8.2 mg/dL (8.5-10.1); CHLORIDE 107 mmol/L (98-107); CREATININE 0.59 mg/dL (0.55-1.02)
[2018-07-22 22:22] LABS: ALKALINE PHOSPHATASE 175 U/L (45-117); BILIRUBIN,TOTAL 0.7 mg/dL (0.2-1.0); TOTAL PROTEIN 5.9 g/dL (6.4-8.2)
--- NOTE | 2018-07-22 22:25 | NUR ---
PT SLEEPING IN [facility]. ALL MONITORS IN PLACE. CALL LIGHT WITHIN REACH. FAMILY AT BED SIDE. WILL CONTINUE TO MONITOR.
[2018-07-22 22:30] LABS: MEAN CORPUSCULAR HEMOGLOBIN 27.1 pg (27.0-34.8); MEAN CORPUSCULAR HGB CONC 32.2 g/dL (32.4-35.8); MEAN CORPUSCULAR VOLUME 83.9 fL (80-100); MEAN PLATELET VOLUME 7.9 fL (7.4-10.4); PLATELET COUNT 182 x10^3/uL (130-400); RED CELL DISTRIBUTION WIDTH 23.1 % (9.6-15.2)
--- NOTE | 2018-07-22 23:02 | NUR ---
pt sleeping in [facility]. all monitors in place. call light within reach. family at bed side.
[2018-07-22 23:37] LABS: BASOPHILS # (AUTO) 0.02 x10^3/uL (0-0.1); BASOPHILS % (AUTO) 0 % (0-1); EOSINOPHILS # (AUTO) 0.07 x10^3/uL (0-0.4); EOSINOPHILS % (AUTO) 1 % (1-7); LYMPHOCYTES # (AUTO) 0.59 x10^3/uL (1-3.4); LYMPHOCYTES % (AUTO) 8 % (22-44); MD SCAN; MONOCYTES # (AUTO) 0.46 x10^3/uL (0.2-0.8); MONOCYTES % (AUTO) 6 % (2-9); NEUTROPHILS # (AUTO) 6.02 x10^3/uL (1.8-6.8); NEUTROPHILS % (AUTO) 84 % (42-75)
--- NOTE | 2018-07-22 23:39 | NUR ---
PT FAMILY LEFT. PT'S BOY FRIEND CATRACHO TA'S NUMBER [phone].
--- NOTE | 2018-07-22 23:45 | NUR ---
pt sleeping in [facility]. all monitors in place. call light within reach. awaiting admit.
--- NOTE | 2018-07-22 23:51 | NUR ---
SBAR REPORT GIVEN TO ILANA RYDER.
[2018-07-23] MEDS ORDERED: ACETAMINOPHEN 325 MG TABLET PO PRN
[2018-07-23] MEDS ORDERED: MORPHINE SULFATE 4 MG/ML, 1ML IVPush PRN
[2018-07-23] MEDS ORDERED: OXYcodone/APAP 5/325MG TABLET PO PRN
[2018-07-23] MEDS ORDERED: ONDANSETRON 2MG/ML, 2ML IVPush PRN
[2018-07-23 00:10] VITALS: BP 160/73
[2018-07-23] MEDS: SUCRALFATE 1 GM TABLET PO SCH ×7 (00:30→21:20)
[2018-07-23] MEDS: FENTANYL 12 MCG PATCH TD SCH (01:48)
[2018-07-23] MEDS: NS + 20MEQ KCL 1,000 ML IV SCH ×2 (01:49→12:27)
[2018-07-23] MEDS: LEVOTHYROXINE 112 MCG TABLET PO SCH (05:52)
[2018-07-23] MEDS: PANTOPROZOLE 40MG TABLET PO SCH (05:56)
[2018-07-23 07:36] VITALS: BP 136/78
[2018-07-23] MEDS: ENOXAPARIN 40 MG/0.4 ML SQ SCH (08:50)
[2018-07-23] MEDS: VENLAFAXINE 75 MG CAP ER PO SCH (08:50)
[2018-07-23] MEDS: FLUCONAZOLE 100 MG TABLET PO SCH (08:51)
[2018-07-23] MEDS: ONDANSETRON ODT 4 MG PO PRN (08:51)
[2018-07-23] MEDS: GABAPENTIN 100 MG CAPSULE PO SCH ×3 (08:51→21:20)
[2018-07-23] MEDS ORDERED: morphine SULFATE ORAL.CONC 20 MG/ML ONE (10:10)
[2018-07-23] MEDS: morphine SULFATE ORAL.CONC 20 MG/ML BC PRN ×5 (10:50→23:04)
[2018-07-23] MEDS ORDERED: TPN PER PHARMACY MC PRN (11:00)
[2018-07-23 13:45] VITALS: BP 147/71
[2018-07-23] MEDS ORDERED: [UNRECOGNIZED DRUG - OTHER] IV SCH (17:00)
[2018-07-23] MEDS ORDERED: [UNRECOGNIZED DRUG - OTHER] IV SCH (17:00)
[2018-07-23] MEDS ORDERED: SMOF TPN IV SCH ×2 (17:00)
[2018-07-23] MEDS ORDERED: FAT EMUL IV SCH ×2 (17:00)
[2018-07-23] MEDS ORDERED: AMINO ACID 10% IV SCH ×2 (17:00)
[2018-07-23] MEDS ORDERED: DEXTROSE 10% 500 ML IV PRN (17:00)
[2018-07-23] MEDS ORDERED: DEXTROSE 70% IV SCH ×2 (17:00)
[2018-07-23] MEDS ORDERED: DEXTROSE 50%, 50ML SYRINGE IVPush PRN (17:00)
[2018-07-23] MEDS ORDERED: SODIUM CHLORIDE 0.9% 1,000 ML IV SCH (17:00)
[2018-07-23] MEDS: FILTER, DISP 1.2 MICRON FOR TPN/PVN IV PRN (18:40)
[2018-07-23 19:50] VITALS: BP 133/76
[2018-07-24 00:39] VITALS: BP 132/78
[2018-07-24] MEDS: morphine SULFATE ORAL.CONC 20 MG/ML BC PRN ×7 (02:15→21:25)
[2018-07-24] MEDS: PANTOPROZOLE 40MG TABLET PO SCH (04:58)
[2018-07-24] MEDS: LEVOTHYROXINE 112 MCG TABLET PO SCH (04:58)
[2018-07-24] MEDS: SUCRALFATE 1 GM TABLET PO SCH (05:17)
[2018-07-24 05:40] LABS: ANION GAP 7 mmol/L (5-15); CALCIUM 8.1 mg/dL (8.5-10.1); CHLORIDE 110 mmol/L (98-107)
[2018-07-24 05:41] LABS: CREATININE 0.53 mg/dL (0.55-1.02)
[2018-07-24 07:56] VITALS: BP 146/81
[2018-07-24] MEDS ORDERED: SUCRALFATE 1 GM/10 ML UDC ONE (08:07)
[2018-07-24] MEDS: VENLAFAXINE 75 MG CAP ER PO SCH (08:12)
[2018-07-24] MEDS: GABAPENTIN 100 MG CAPSULE PO SCH ×3 (08:13→21:26)
[2018-07-24] MEDS: ENOXAPARIN 40 MG/0.4 ML SQ SCH (08:13)
[2018-07-24] MEDS: FLUCONAZOLE 100 MG TABLET PO SCH (08:13)
[2018-07-24] MEDS: INSULIN REGULAR MEDIUM DOSE QDAY SQ-INSULIN SCH (08:14)
[2018-07-24] MEDS: SUCRALFATE 1 GM/10 ML UDC PO SCH ×3 (11:19→21:26)
[2018-07-24 14:27] VITALS: BP 162/79
[2018-07-24] MEDS ORDERED: FAT EMUL IV SCH (17:00)
[2018-07-24] MEDS ORDERED: DEXTROSE 70% IV SCH (17:00)
[2018-07-24] MEDS ORDERED: AMINO ACID 10% IV SCH (17:00)
[2018-07-24] MEDS ORDERED: SMOF TPN IV SCH (17:00)
[2018-07-24] MEDS ORDERED: [UNRECOGNIZED DRUG - OTHER] IV SCH (17:00)
[2018-07-24] MEDS: FILTER, DISP 1.2 MICRON FOR TPN/PVN IV PRN (17:56)
[2018-07-24 18:59] VITALS: BP 156/80
[2018-07-25] MEDS: morphine SULFATE ORAL.CONC 20 MG/ML BC PRN ×7 (00:40→21:10)
[2018-07-25 02:30] LABS: ANION GAP 7 mmol/L (5-15); CALCIUM 8.2 mg/dL (8.5-10.1); CHLORIDE 108 mmol/L (98-107); CREATININE 0.58 mg/dL (0.55-1.02)
[2018-07-25 03:07] VITALS: BP 131/79
[2018-07-25] MEDS: PANTOPROZOLE 40MG TABLET PO SCH (06:25)
[2018-07-25] MEDS: LEVOTHYROXINE 112 MCG TABLET PO SCH (06:26)
[2018-07-25] MEDS: SUCRALFATE 1 GM/10 ML UDC PO SCH ×4 (07:50→21:10)
[2018-07-25 08:10] VITALS: BP 150/79
[2018-07-25] MEDS: VENLAFAXINE 75 MG CAP ER PO SCH (08:56)
[2018-07-25] MEDS: GABAPENTIN 100 MG CAPSULE PO SCH ×3 (08:56→21:10)
[2018-07-25] MEDS: ENOXAPARIN 40 MG/0.4 ML SQ SCH (08:56)
[2018-07-25] MEDS: FLUCONAZOLE 100 MG TABLET PO SCH (08:57)
[2018-07-25] MEDS: INSULIN REGULAR MEDIUM DOSE QDAY SQ-INSULIN SCH (08:59)
[2018-07-25 13:46] VITALS: BP 144/77
[2018-07-25] MEDS ORDERED: FAT EMUL IV SCH (17:00)
[2018-07-25] MEDS ORDERED: AMINO ACID 10% IV SCH (17:00)
[2018-07-25] MEDS ORDERED: [UNRECOGNIZED DRUG - OTHER] IV SCH (17:00)
[2018-07-25] MEDS ORDERED: SMOF TPN IV SCH (17:00)
[2018-07-25] MEDS ORDERED: DEXTROSE 70% IV SCH (17:00)
[2018-07-25] MEDS: FILTER, DISP 1.2 MICRON FOR TPN/PVN IV PRN (17:46)
[2018-07-25 18:59] VITALS: BP 139/82
[2018-07-26] MEDS: FENTANYL 12 MCG PATCH TD SCH (00:23)
[2018-07-26] MEDS: morphine SULFATE ORAL.CONC 20 MG/ML BC PRN ×8 (00:23→22:55)
[2018-07-26 01:01] VITALS: BP 130/75
[2018-07-26 03:43] LABS: ALBUMIN 1.8 g/dL (3.4-5.0); ANION GAP 7 mmol/L (5-15); CALCIUM 7.9 mg/dL (8.5-10.1); CHLORIDE 106 mmol/L (98-107); CREATININE 0.44 mg/dL (0.55-1.02)
[2018-07-26 03:47] LABS: ALANINE AMINOTRANSFERASE 43 U/L (12-78); ALKALINE PHOSPHATASE 187 U/L (45-117); BILIRUBIN,TOTAL 0.5 mg/dL (0.2-1.0); TOTAL PROTEIN 5.7 g/dL (6.4-8.2); TRIGLYCERIDES 213 mg/dL (50-200)
[2018-07-26] MEDS: LEVOTHYROXINE 112 MCG TABLET PO SCH (06:24)
[2018-07-26] MEDS: PANTOPROZOLE 40MG TABLET PO SCH (06:24)
[2018-07-26 07:23] VITALS: BP 134/75
[2018-07-26] MEDS: INSULIN REGULAR MEDIUM DOSE QDAY SQ-INSULIN SCH (08:38)
[2018-07-26] MEDS: GABAPENTIN 100 MG CAPSULE PO SCH ×3 (09:13→19:50)
[2018-07-26] MEDS: ENOXAPARIN 40 MG/0.4 ML SQ SCH (09:13)
[2018-07-26] MEDS: FLUCONAZOLE 100 MG TABLET PO SCH (09:13)
[2018-07-26] MEDS: VENLAFAXINE 75 MG CAP ER PO SCH (09:13)
[2018-07-26] MEDS: ONDANSETRON ODT 4 MG PO PRN (09:13)
[2018-07-26] MEDS: SUCRALFATE 1 GM/10 ML UDC PO SCH ×4 (09:15→19:49)
[2018-07-26 13:14] VITALS: BP 169/80
[2018-07-26] MEDS ORDERED: DEXTROSE 70% IV SCH (17:00)
[2018-07-26] MEDS ORDERED: AMINO ACID 10% IV SCH (17:00)
[2018-07-26] MEDS ORDERED: SMOF TPN IV SCH (17:00)
[2018-07-26] MEDS ORDERED: [UNRECOGNIZED DRUG - OTHER] IV SCH (17:00)
[2018-07-26] MEDS ORDERED: FAT EMUL IV SCH (17:00)
[2018-07-26] MEDS: FILTER, DISP 1.2 MICRON FOR TPN/PVN IV PRN (18:01)
[2018-07-26 20:07] VITALS: BP 156/77
[2018-07-27 00:22] VITALS: BP 130/75
[2018-07-27] MEDS: morphine SULFATE ORAL.CONC 20 MG/ML BC PRN ×7 (01:56→21:56)
[2018-07-27] MEDS: PANTOPROZOLE 40MG TABLET PO SCH (04:59)
[2018-07-27] MEDS: LEVOTHYROXINE 112 MCG TABLET PO SCH (04:59)
[2018-07-27 05:36] LABS: ANION GAP 7 mmol/L (5-15); CALCIUM 8.3 mg/dL (8.5-10.1); CHLORIDE 103 mmol/L (98-107); CREATININE 0.45 mg/dL (0.55-1.02)
[2018-07-27 07:12] VITALS: BP 147/75
[2018-07-27] MEDS: INSULIN REGULAR MEDIUM DOSE QDAY SQ-INSULIN SCH (07:59)
[2018-07-27] MEDS: GABAPENTIN 100 MG CAPSULE PO SCH ×3 (08:08→21:56)
[2018-07-27] MEDS: VENLAFAXINE 75 MG CAP ER PO SCH (08:09)
[2018-07-27] MEDS: FLUCONAZOLE 100 MG TABLET PO SCH (08:09)
[2018-07-27] MEDS: SUCRALFATE 1 GM/10 ML UDC PO SCH ×4 (08:09→21:56)
[2018-07-27] MEDS: ENOXAPARIN 40 MG/0.4 ML SQ SCH (08:09)
[2018-07-27 13:52] VITALS: BP 138/75
[2018-07-27] MEDS ORDERED: [UNRECOGNIZED DRUG - OTHER] IV SCH (17:00)
[2018-07-27] MEDS ORDERED: SMOF TPN IV SCH (17:00)
[2018-07-27] MEDS ORDERED: DEXTROSE 70% IV SCH (17:00)
[2018-07-27] MEDS ORDERED: AMINO ACID 10% IV SCH (17:00)
[2018-07-27] MEDS ORDERED: FAT EMUL IV SCH (17:00)
[2018-07-27 19:11] VITALS: BP 129/84
[2018-07-28] MEDS: morphine SULFATE ORAL.CONC 20 MG/ML BC PRN ×7 (01:33→21:38)
[2018-07-28 01:35] VITALS: BP 135/67
[2018-07-28] MEDS: PANTOPROZOLE 40MG TABLET PO SCH (05:25)
[2018-07-28] MEDS: LEVOTHYROXINE 112 MCG TABLET PO SCH (05:25)
[2018-07-28 05:57] LABS: ANION GAP 5 mmol/L (5-15); CALCIUM 8.1 mg/dL (8.5-10.1); CHLORIDE 103 mmol/L (98-107); CREATININE 0.47 mg/dL (0.55-1.02)
[2018-07-28 07:43] VITALS: BP 166/80
[2018-07-28] MEDS: SUCRALFATE 1 GM/10 ML UDC PO SCH ×4 (08:04→21:38)
[2018-07-28] MEDS: VENLAFAXINE 75 MG CAP ER PO SCH (08:05)
[2018-07-28] MEDS: INSULIN REGULAR MEDIUM DOSE QDAY SQ-INSULIN SCH (08:05)
[2018-07-28] MEDS: FLUCONAZOLE 100 MG TABLET PO SCH (08:05)
[2018-07-28] MEDS: GABAPENTIN 100 MG CAPSULE PO SCH ×3 (08:05→21:38)
[2018-07-28] MEDS: ENOXAPARIN 40 MG/0.4 ML SQ SCH (08:19)
[2018-07-28] MEDS ORDERED: MAGNESIUM HYDROXIDE 8%, 30ML UDC ONE (09:44)
[2018-07-28] MEDS ORDERED: MAGNESIUM HYDROXIDE 8%, 30ML UDC PO PRN (10:00)
[2018-07-28 15:22] VITALS: BP 160/81
[2018-07-28] MEDS ORDERED: FAT EMUL IV SCH (17:00)
[2018-07-28] MEDS ORDERED: FILTER, DISP 1.2 MICRON FOR TPN/PVN IV PRN (17:00)
[2018-07-28] MEDS ORDERED: AMINO ACID 10% IV SCH (17:00)
[2018-07-28] MEDS ORDERED: DEXTROSE 70% IV SCH (17:00)
[2018-07-28] MEDS ORDERED: SMOF TPN IV SCH (17:00)
[2018-07-28] MEDS ORDERED: [UNRECOGNIZED DRUG - OTHER] IV SCH (17:00)
[2018-07-28 20:51] VITALS: BP 120/71
[2018-07-28] MEDS: DOCUSATE 100 MG CAPSULE PO SCH (21:38)
[2018-07-29] MEDS: morphine SULFATE ORAL.CONC 20 MG/ML BC PRN ×5 (02:18→17:38)
[2018-07-29] MEDS: FENTANYL 12 MCG PATCH TD SCH (02:21)
[2018-07-29 02:23] VITALS: BP 119/69
[2018-07-29] MEDS: LEVOTHYROXINE 112 MCG TABLET PO SCH (05:00)
[2018-07-29] MEDS: PANTOPROZOLE 40MG TABLET PO SCH (05:00)
[2018-07-29 08:10] VITALS: BP 134/77
[2018-07-29] MEDS: SUCRALFATE 1 GM/10 ML UDC PO SCH ×3 (08:25→16:07)
[2018-07-29] MEDS: GABAPENTIN 100 MG CAPSULE PO SCH ×2 (08:26→16:07)
[2018-07-29] MEDS: ENOXAPARIN 40 MG/0.4 ML SQ SCH (08:26)
[2018-07-29] MEDS: INSULIN REGULAR MEDIUM DOSE QDAY SQ-INSULIN SCH (08:26)
[2018-07-29] MEDS: DOCUSATE 100 MG CAPSULE PO SCH (08:26)
[2018-07-29] MEDS: VENLAFAXINE 75 MG CAP ER PO SCH (08:26)
[2018-07-29] MEDS: FLUCONAZOLE 100 MG TABLET PO SCH (08:26)
[2018-07-29 13:15] VITALS: BP 139/75
[2018-07-29] MEDS ORDERED: ACET325T14 PO (14:12)
[2018-07-29] MEDS ORDERED: DOCU-131 PO (14:12)
[2018-07-31] MEDS ORDERED: SODIUM CHLORIDE FLUSH 10ML SYR IVF ONE (18:30)
== END 2018-07-29 18:55 | disposition home or self-care (01) | DRG 368 ==
LOC: ED 21:07 → EDIP 23:35 → 3NW 23:57
PROVIDERS: ADMIT Internal Medicine; ATTEND Internal Medicine
DX: B37.81 Candidal esophagitis (principal); E43 Unspecified severe protein-calorie malnutrition; C18.9 Malignant neoplasm of colon, unspecified; C79.51 Secondary malignant neoplasm of bone; J90 Pleural effusion, not elsewhere classified; C64.9 Malignant neoplasm of unspecified kidney, except renal pelvis; B37.0 Candidal stomatitis; R13.10 Dysphagia, unspecified; Z68.36 Body mass index [BMI] 36.0-36.9, adult; Z91.048 Other nonmedicinal substance allergy status; E03.9 Hypothyroidism, unspecified; E83.39 Other disorders of phosphorus metabolism; I10 Essential (primary) hypertension; K12.30 Oral mucositis (ulcerative), unspecified; R62.7 Adult failure to thrive; Z93.3 Colostomy status; R00.0 Tachycardia, unspecified
CPT/HCPCS: 36415; 74018; 80048; 80053; 82962; 83735; 84100; 84134; 84478; 85025; 93005; 99285; G0378; J0610; J1650; J3475; J3480; Q0162; J7030

== ENCOUNTER 2018-07-31 17:44 | Inpatient (IN) | payer MEDICARE, MEDICAID ==
[~2018-07-31] VITALS: Ht 157.5 cm; Wt 93.3 kg
[~2018-07-31 17:44] MED LIST changes: +ACET325T14 PO; +DOCU-131 PO
[2018-07-31] MEDS ORDERED: SODIUM CHLORIDE FLUSH 10ML SYR IVF ONE ×2 (18:30)
[2018-07-31 18:48] LABS: MEAN CORPUSCULAR HEMOGLOBIN 28.7 pg (27.0-34.8); MEAN CORPUSCULAR HGB CONC 33.9 g/dL (32.4-35.8); MEAN CORPUSCULAR VOLUME 84.6 fL (80-100); PLATELET COUNT 322 x10^3/uL (130-400); RED BLOOD COUNT 3.28 x10^6/uL (3.82-5.3); RED CELL DISTRIBUTION WIDTH 25.8 % (9.6-15.2)
[2018-07-31 18:51] LABS: ALANINE AMINOTRANSFERASE 26 U/L (12-78); ALBUMIN 2.1 g/dL (3.4-5.0); ANION GAP 10 mmol/L (5-15); CALCIUM 8.5 mg/dL (8.5-10.1); CHLORIDE 108 mmol/L (98-107); CREATININE 0.56 mg/dL (0.55-1.02)
[2018-07-31 18:54] LABS: ALKALINE PHOSPHATASE 155 U/L (45-117); BILIRUBIN,TOTAL 0.7 mg/dL (0.2-1.0); TOTAL PROTEIN 6.5 g/dL (6.4-8.2)
[2018-07-31 19:04] LABS: BASOPHILS # (AUTO) 0.01 x10^3/uL (0-0.1); BASOPHILS % (AUTO) 0 % (0-1); EOSINOPHILS # (AUTO) 0.01 x10^3/uL (0-0.4); EOSINOPHILS % (AUTO) 0 % (1-7); LYMPHOCYTES # (AUTO) 0.61 x10^3/uL (1-3.4); LYMPHOCYTES % (AUTO) 10 % (22-44); MD MORPH REVIEW ONLY; MONOCYTES # (AUTO) 0.48 x10^3/uL (0.2-0.8); MONOCYTES % (AUTO) 8 % (2-9); NEUTROPHILS % (AUTO) 83 % (42-75)
[2018-07-31 19:05] LABS: ANISOCYTOSIS 2+; MICROCYTOSIS 2+
[2018-07-31 19:06] LABS: <PLATELET ESTIMATE> ADEQUATE; <PLT MORPHOLOGY> NORMAL PLT MORPH
[2018-07-31] MEDS ORDERED: POTASSIUM CHLORIDE 10% 40 MEQ/30 ML UDC PO ONE (19:30)
--- NOTE | 2018-07-31 19:49 | NUR ---
PT WITH PORT ACCESSED. REPORT CALLED TO FLOOR.
[2018-07-31 20:00] VITALS: BP 127/87
[2018-07-31] MEDS ORDERED: LIDODERM 5% PATCH TD PRN (20:30)
[2018-07-31] MEDS ORDERED: LORazepam 2 MG/ML, 1ML IVPush PRN (20:30)
[2018-07-31] MEDS ORDERED: BISACODYL 10 MG SUPP PR PRN (20:30)
[2018-07-31] MEDS ORDERED: hydrALAzine 20 MG/ML, 1ML IVPush PRN (20:30)
[2018-07-31] MEDS ORDERED: ACETAMINOPHEN 325 MG TABLET PO PRN (20:30)
[2018-07-31] MEDS ORDERED: ONDANSETRON 2MG/ML, 2ML IVPush PRN (20:30)
[2018-07-31] MEDS: morphine SULFATE 10 MG/ML, 1ML IVPush PRN (20:38)
[2018-07-31 20:43] VITALS: BP 127/87
[2018-07-31] MEDS: D5%-0.45NACL+KCL 20MEQ 1,000 ML IV SCH (21:25)
[2018-07-31] MEDS: ENOXAPARIN 40 MG/0.4 ML SQ SCH (21:25)
[2018-07-31 23:47] LABS: CULTURE INDICATED? YES; MICROSCOPIC INDICATED
[2018-08-01] MEDS: morphine SULFATE 10 MG/ML, 1ML IVPush PRN ×3 (00:16→06:27)
[2018-08-01 01:21] VITALS: BP 136/70
[2018-08-01] MEDS: D5%-0.45NACL+KCL 20MEQ 1,000 ML IV SCH ×2 (05:02→16:45)
[2018-08-01 07:28] VITALS: BP 120/70
[2018-08-01 08:58] LABS: MEAN CORPUSCULAR HEMOGLOBIN 27.8 pg (27.0-34.8); MEAN CORPUSCULAR HGB CONC 32.3 g/dL (32.4-35.8); MEAN CORPUSCULAR VOLUME 85.8 fL (80-100); MEAN PLATELET VOLUME 6.9 fL (7.4-10.4); PLATELET COUNT 294 x10^3/uL (130-400); RED BLOOD COUNT 3.06 x10^6/uL (3.82-5.3); RED CELL DISTRIBUTION WIDTH 26.1 % (9.6-15.2)
[2018-08-01] MEDS ORDERED: morphine SULFATE 10 MG/ML, 1ML IVPush PRN (09:00)
[2018-08-01] MEDS ORDERED: ACETAMINOPHEN 325 MG TABLET PO PRN (09:00)
[2018-08-01] MEDS ORDERED: LEVOTHYROXINE 112 MCG TABLET PO SCH (09:00)
[2018-08-01 09:07] LABS: ANION GAP 6 mmol/L (5-15); CALCIUM 8.1 mg/dL (8.5-10.1); CHLORIDE 107 mmol/L (98-107); CREATININE 0.61 mg/dL (0.55-1.02)
[2018-08-01 09:17] LABS: BASOPHILS # (AUTO) 0.04 x10^3/uL (0-0.1); BASOPHILS % (AUTO) 1 % (0-1); EOSINOPHILS # (AUTO) 0.03 x10^3/uL (0-0.4); EOSINOPHILS % (AUTO) 1 % (1-7); LYMPHOCYTES # (AUTO) 0.71 x10^3/uL (1-3.4); LYMPHOCYTES % (AUTO) 15 % (22-44); MD SCAN; MONOCYTES # (AUTO) 0.44 x10^3/uL (0.2-0.8); MONOCYTES % (AUTO) 9 % (2-9); NEUTROPHILS # (AUTO) 3.54 x10^3/uL (1.8-6.8); NEUTROPHILS % (AUTO) 74 % (42-75)
[2018-08-01] MEDS ORDERED: OXYcodone/APAP 5/325MG TABLET PO PRN (09:30)
[2018-08-01] MEDS: FLUCONAZOLE 100 MG TABLET PO SCH (10:28)
[2018-08-01] MEDS: DOCUSATE 100 MG CAPSULE PO SCH ×2 (10:28→20:56)
[2018-08-01] MEDS: VENLAFAXINE 37.5MG TABLET PO SCH ×2 (10:29→20:57)
[2018-08-01] MEDS: LEVOTHYROXINE 112 MCG TABLET PO SCH (10:29)
[2018-08-01] MEDS: GABAPENTIN 100 MG CAPSULE PO SCH ×3 (10:29→20:57)
[2018-08-01 12:27] VITALS: BP 145/77
[2018-08-01] MEDS: SUCRALFATE 1 GM TABLET PO SCH ×3 (13:16→20:56)
[2018-08-01 18:56] VITALS: BP 131/71
[2018-08-01] MEDS: ENOXAPARIN 40 MG/0.4 ML SQ SCH (20:56)
[2018-08-02 01:25] VITALS: BP 155/78
[2018-08-02] MEDS: D5%-0.45NACL+KCL 20MEQ 1,000 ML IV SCH ×2 (01:41→12:12)
[2018-08-02] MEDS: LEVOTHYROXINE 112 MCG TABLET PO SCH (06:30)
[2018-08-02] MEDS ORDERED: PANTOPROZOLE 40MG TABLET PO SCH (07:30)
[2018-08-02] MEDS: FLUCONAZOLE 100 MG TABLET PO SCH (08:19)
[2018-08-02] MEDS: SUCRALFATE 1 GM TABLET PO SCH ×3 (08:19→17:57)
[2018-08-02] MEDS: GABAPENTIN 100 MG CAPSULE PO SCH ×2 (08:20→17:57)
[2018-08-02] MEDS: VENLAFAXINE 37.5MG TABLET PO SCH (08:20)
[2018-08-02] MEDS: DOCUSATE 100 MG CAPSULE PO SCH (08:20)
[2018-08-02 09:03] VITALS: BP 145/73
[2018-08-02 14:06] VITALS: BP 155/83
[2018-08-02] MEDS ORDERED: VENLAFAXINE XR 37.5MG CAP.ER.24H PO ONE (17:54)
== END 2018-08-02 18:13 | DRG 640 ==
LOC: ED 19:20 → EDIP 20:19 → 3NW 20:22
PROVIDERS: ADMIT Hospitalist; ATTEND Hospitalist
DX: E87.6 Hypokalemia (principal); E43 Unspecified severe protein-calorie malnutrition; C18.9 Malignant neoplasm of colon, unspecified; C79.51 Secondary malignant neoplasm of bone; F33.9 Major depressive disorder, recurrent, unspecified; R62.7 Adult failure to thrive; D64.9 Anemia, unspecified; E66.01 Morbid (severe) obesity due to excess calories; E83.42 Hypomagnesemia; F12.90 Cannabis use, unspecified, uncomplicated; I10 Essential (primary) hypertension; Z80.51 Family history of malignant neoplasm of kidney; Z90.49 Acquired absence of other specified parts of digestive tract; Z93.3 Colostomy status; Z79.899 Other long term (current) drug therapy; Z68.37 Body mass index [BMI] 37.0-37.9, adult; Z91.048 Other nonmedicinal substance allergy status; Z85.528 Personal history of other malignant neoplasm of kidney
CPT/HCPCS: 36415; 80048; 80053; 81001; 83735; 85025; 87077; 87086; 99285; G0378; J1650; J2270; J3480

== ENCOUNTER 2018-08-21 15:47 | Emergency (ER) | payer MEDICARE, MEDICAID ==
[~2018-08-21] VITALS: Ht 157.5 cm; Wt 91.0 kg
[2018-08-21] MEDS ORDERED: SODIUM CHLORIDE FLUSH 10ML SYR IVF ONE (16:00)
--- NOTE | 2018-08-21 16:10 | NUR ---
Note undone in EDM - 08/21/18 at 1637 by [email or web address] PT TO ED FOR N/V X1 DAY AND CONFUSTION X1.5 WEEKS. PT CONFUSED AND PT'S HERE TO ANSWER QUESTIONS. CONNECTED TO ALL MONITORS. HTN, ALL OTHER VSS. MD TO BEDSIDE FOR ASSESEMTN. ORDERS RECEVIED. LAB AT BEDSIDE. IV ESTABLISHED. AWAITING RESULTS AT THIS TIME. CALL LIGHT WITHIN REACH.
[2018-08-21 16:32] LABS: MEAN CORPUSCULAR HEMOGLOBIN 28.2 pg (27.0-34.8); MEAN CORPUSCULAR HGB CONC 32.6 g/dL (32.4-35.8); MEAN CORPUSCULAR VOLUME 86.6 fL (80-100); MEAN PLATELET VOLUME 6.6 fL (7.4-10.4); PLATELET COUNT 266 x10^3/uL (130-400); RED CELL DISTRIBUTION WIDTH 22.6 % (9.6-15.2)
[2018-08-21 16:33] LABS: ALANINE AMINOTRANSFERASE 8 U/L (12-78); ALBUMIN 2.3 g/dL (3.4-5.0); ANION GAP 9 mmol/L (5-15); CALCIUM 8.9 mg/dL (8.5-10.1); CHLORIDE 107 mmol/L (98-107); CREATININE 0.45 mg/dL (0.55-1.02)
[2018-08-21 16:35] LABS: ALKALINE PHOSPHATASE 113 U/L (45-117); BILIRUBIN,TOTAL 0.3 mg/dL (0.2-1.0); TOTAL PROTEIN 6.6 g/dL (6.4-8.2)
--- NOTE | 2018-08-21 16:38 | NUR ---
CT PENDING LAB/CREATINE.
[2018-08-21 16:45] LABS: BASOPHILS # (AUTO) 0.02 x10^3/uL (0-0.1); BASOPHILS % (AUTO) 0 % (0-1); EOSINOPHILS # (AUTO) 0.11 x10^3/uL (0-0.4); EOSINOPHILS % (AUTO) 2 % (1-7); LYMPHOCYTES # (AUTO) 0.69 x10^3/uL (1-3.4); LYMPHOCYTES % (AUTO) 11 % (22-44); MD SCAN; MONOCYTES # (AUTO) 0.31 x10^3/uL (0.2-0.8); MONOCYTES % (AUTO) 5 % (2-9); NEUTROPHILS % (AUTO) 82 % (42-75)
[2018-08-21] MEDS ORDERED: OMNIPAQUE 350 MG/ML, 100ML BOTTLE ONE (16:55)
[2018-08-21] MEDS ORDERED: POTASSIUM CHLORIDE 20 MEQ TAB.ER.PRT PO ONE (17:00)
[2018-08-21 17:19] LABS: MICROSCOPIC AUTO
[2018-08-21] MEDS ORDERED: POTASSIUM CHLORIDE 20 MEQ TAB.ER.PRT ONE (17:20)
[2018-08-21 17:22] LABS: CULTURE INDICATED? YES
--- NOTE | 2018-08-21 17:25 | NUR ---
MD TO BEDSIDE TO UPDATE ON POC. ALL QUESTIONS ANSWERED. VSS. NO NEEDS AT THIS TIME. CALL LIGHT WITHIN REACH.
[2018-08-21 17:26] VITALS: BP 148/88
== END 2018-08-21 18:06 | disposition home or self-care (01) ==
LOC: ED 15:58
DX: R10.84 Generalized abdominal pain (principal); D63.8 Anemia in other chronic diseases classified elsewhere; E87.6 Hypokalemia; I10 Essential (primary) hypertension; Z85.048 Personal history of other malignant neoplasm of rectum, rectosigmoid junction, and anus
CPT/HCPCS: 36415; 74177; 80053; 81001; 83605; 83690; 85025; 87086; 99284; Q9967

== ENCOUNTER → 2018-10-19 | Outpatient (CLI) | payer MEDICARE, MEDICAID ==
[~2018-10-19] MED LIST changes: +BUPIVACAINE/PF 0.25% ONE; +OMNIPAQUE 350 MG/ML, 150 ML BOTTLE ONE
== END | disposition home or self-care (01) ==
LOC: CFH 13:01
PROVIDERS: ATTEND Internal Medicine Hematology & Oncology
DX: C64.9 Malignant neoplasm of unspecified kidney, except renal pelvis (principal); I25.10 Atherosclerotic heart disease of native coronary artery without angina pectoris; J98.11 Atelectasis; J90 Pleural effusion, not elsewhere classified; R91.1 Solitary pulmonary nodule; K76.89 Other specified diseases of liver; D13.6 Benign neoplasm of pancreas; D25.9 Leiomyoma of uterus, unspecified; Q25.46 Tortuous aortic arch; C21.8 Malignant neoplasm of overlapping sites of rectum, anus and anal canal
CPT/HCPCS: 70491; 71260; 74177; Q9967; J3490

== ENCOUNTER 2019-02-01 09:42 | Outpatient (CLI) | payer MEDICARE, MEDICAID ==
[~2019-02-01 09:42] MED LIST changes: -BUPIVACAINE/PF 0.25% ONE; -OMNIPAQUE 350 MG/ML, 150 ML BOTTLE ONE
[2019-02-01] MEDS ORDERED: OMNIPAQUE 350 MG/ML, 100ML BOTTLE ONE (15:02)
== END 2019-02-01 23:59 | disposition home or self-care (01) ==
LOC: PETCFH 09:42
PROVIDERS: ATTEND Internal Medicine Hematology & Oncology
DX: C21.8 Malignant neoplasm of overlapping sites of rectum, anus and anal canal (principal); J90 Pleural effusion, not elsewhere classified; J98.11 Atelectasis; N28.89 Other specified disorders of kidney and ureter; I82.3 Embolism and thrombosis of renal vein
CPT/HCPCS: 71260; 74177; 78306; A9503; Q9967

== ENCOUNTER 2019-02-22 12:29 | Outpatient (CLI) | payer MEDICARE, MEDICAID ==
[2019-02-22] MEDS ORDERED: LIDOCAINE-MPF 1%, 5ML ONE (12:40)
[2019-02-28] MEDS ORDERED: CAPE500T24 PO (15:13)
[2019-03-04] MEDS ORDERED: CARV3.1212 PO (09:57)
[2019-03-04] MEDS ORDERED: ACET325T26 PO (09:57)
[2019-03-19] MEDS ORDERED: VENL150C PO (18:02)
[2019-03-19] MEDS ORDERED: Potassium PO (18:02)
== END 2019-02-22 23:59 | disposition home or self-care (01) ==
LOC: RAD 12:29
PROVIDERS: ATTEND Internal Medicine Hematology & Oncology
DX: C21.8 Malignant neoplasm of overlapping sites of rectum, anus and anal canal (principal); J91.0 Malignant pleural effusion
CPT/HCPCS: 32555; 82945; 83615; 83986; 88112; 88305; 88341; 88342; 89051

== ENCOUNTER 2019-02-28 12:56 | Inpatient (IN) | payer MEDICARE, MEDICAID ==
[~2019-02-28] VITALS: Ht 157.5 cm; Wt 77.4 kg
[2019-03-04 10:05] VITALS: BP 136/81
== END 2019-03-04 12:00 | disposition home health service (06) | DRG 199 ==
LOC: ED 14:35 → EDIP 15:41 → 4WST 17:58 → 3NW 03-02 13:18 → DCLOUNGE 03-04 11:50
PROVIDERS: ADMIT Internal Medicine; ATTEND Internal Medicine
PROC: 0W9930Z Drainage of Right Pleural Cavity with Drainage Device, Percutaneous Approach (ICD-10-PCS; principal; 2019-02-28)
PROC: 0T9B70Z Drainage of Bladder with Drainage Device, Via Natural or Artificial Opening (ICD-10-PCS; 2019-02-28)
DX: J93.9 Pneumothorax, unspecified (principal); E43 Unspecified severe protein-calorie malnutrition; C20 Malignant neoplasm of rectum; C79.51 Secondary malignant neoplasm of bone; E87.2 Acidosis; J94.8 Other specified pleural conditions; J91.0 Malignant pleural effusion; Z91.048 Other nonmedicinal substance allergy status; E03.9 Hypothyroidism, unspecified; E11.9 Type 2 diabetes mellitus without complications; E66.9 Obesity, unspecified; Z68.31 Body mass index [BMI] 31.0-31.9, adult; F32.9 Major depressive disorder, single episode, unspecified; G89.4 Chronic pain syndrome; I10 Essential (primary) hypertension; R09.02 Hypoxemia; Z80.9 Family history of malignant neoplasm, unspecified
CPT/HCPCS: 32557; 36415; 36598; 71045; 74177; 80048; 80053; 80061; 81001; 83036; 83605; 83735; 84100; 84145; 84439; 84443; 85025; 87040; 87086; 93005; 99285; G0378; J1644; J3010; Q9967; J2310; J7030; Q0163

== ENCOUNTER 2019-05-17 14:58 | Inpatient (IN) | payer MEDICARE, MEDICAID ==
[~2019-05-17] VITALS: Ht 157.5 cm; Wt 78.9 kg
[~2019-05-17 14:58] MED LIST changes: +ACET325T26 PO; +CAPE500T24 PO; +CARV3.1212 PO; +Potassium PO; +VENL150C PO
[2019-05-17] MEDS ORDERED: LORAZEPAM (15:07)
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
[2019-05-17 15:30] LABS: BASOPHILS # (AUTO) 0.01 x10^3/uL (0-0.1); BASOPHILS % (AUTO) 0 % (0-1); EOSINOPHILS # (AUTO) 0.19 x10^3/uL (0-0.4); EOSINOPHILS % (AUTO) 3 % (1-7); LYMPHOCYTES # (AUTO) 0.37 x10^3/uL (1-3.4); LYMPHOCYTES % (AUTO) 5 % (22-44); MD NO; MEAN CORPUSCULAR HEMOGLOBIN 28.2 pg (27.0-34.8); MEAN CORPUSCULAR HGB CONC 32.2 g/dL (32.4-35.8); MEAN CORPUSCULAR VOLUME 87.5 fL (80-100); MEAN PLATELET VOLUME 6.4 fL (7.4-10.4); MONOCYTES # (AUTO) 0.32 x10^3/uL (0.2-0.8); MONOCYTES % (AUTO) 4 % (2-9); NEUTROPHILS # (AUTO) 6.97 x10^3/uL (1.8-6.8); NEUTROPHILS % (AUTO) 89 % (42-75); PLATELET COUNT 346 x10^3/uL (130-400); RED BLOOD COUNT 4.58 x10^6/uL (3.82-5.3); RED CELL DISTRIBUTION WIDTH 16.8 % (9.6-15.2)
[2019-05-17 15:39] LABS: ALANINE AMINOTRANSFERASE 7 U/L (12-78); ALBUMIN 2.4 g/dL (3.4-5.0); ANION GAP 10 mmol/L (5-15); CHLORIDE 107 mmol/L (98-107); CREATININE 0.54 mg/dL (0.55-1.02)
[2019-05-17 15:43] LABS: ALKALINE PHOSPHATASE 124 U/L (45-117); BILIRUBIN,TOTAL 0.5 mg/dL (0.2-1.0); TOTAL PROTEIN 7.1 g/dL (6.4-8.2)
[2019-05-17 15:58] LABS: TROPONIN I 0.168 ng/mL (0.000-0.045)
--- NOTE | 2019-05-17 16:36 | NUR ---
CASPER CARBALLO TO BS TO UPDATE ON RESULTS AND POC. PLAN TO DC.
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
--- NOTE | 2019-05-17 17:15 | NUR ---
pt placed back in room 30 at this time.
--- NOTE | 2019-05-17 17:17 | NUR ---
flower, pts friend, called and spoke with this rn. pt states ok to give flower info. flower states he would be able to pick pt up with home o2, but would not be able to care for pt once she is home. pt is not safe for dc home at this time.
--- NOTE | 2019-05-17 17:35 | NUR ---
TASK RN: FIRST CONTACT WITH PT. Receieved report from BRITNI Sheridan. Pt sitting in wheelchair with oxygen via NC on attempting to use personal cell phone. Pt states, "I just want to go home." Pt aware the discharge is unsafe at this time as her caregiver is not available for her at home. Pt offered food. Pt declined. Pt offered assistance with cell phone or making phone call with ED phone, pt declined. Pt aware that SW is to see her. NADN. No other needs expressed.
--- NOTE | 2019-05-17 17:47 | NUR ---
DELMA Tavarez at bedside with pt now.
--- NOTE | 2019-05-17 17:56 | NUR ---
Ordered pt dinner tray. DELMA Tavarez speaking to ED MD at this time. NADN. No other needs expressed at this time.
--- NOTE | 2019-05-17 18:34 | NUR ---
provided diet tray. pt declined to eat and left it on the table. report to linette nunez. pt ready for transport.
[2019-05-17 20:00] VITALS: BP 129/79
[2019-05-17] MEDS ORDERED: BISACODYL 10 MG SUPP PR PRN (21:00)
[2019-05-17] MEDS ORDERED: ONDANSETRON 2MG/ML, 2ML IVPush PRN (21:00)
[2019-05-17] MEDS ORDERED: LORazepam 2 MG/ML, 1ML IVPush PRN (21:00)
[2019-05-17] MEDS ORDERED: morphine SULFATE 10 MG/ML, 1ML IVPush PRN (21:00)
[2019-05-17] MEDS ORDERED: ACETAMINOPHEN 325 MG TABLET PO PRN (21:00)
[2019-05-17] MEDS: ENOXAPARIN 40 MG/0.4 ML SQ SCH (21:00)
[2019-05-17] MEDS ORDERED: OXYcodone IR 5MG TABLET PO PRN (21:00)
[2019-05-17 23:54] LABS: CULTURE INDICATED? YES; MICROSCOPIC INDICATED
[2019-05-18 02:48] VITALS: BP 165/91
[2019-05-18 06:42] VITALS: BP 150/90
[2019-05-18] MEDS: ENOXAPARIN 40 MG/0.4 ML SQ SCH (08:14)
[2019-05-18 12:15] VITALS: BP 164/97
[2019-05-18] MEDS ORDERED: MELATONIN 5 MG TABLET PO PRN (17:30)
[2019-05-18 18:32] VITALS: BP 142/88
[2019-05-18] MEDS ORDERED: LORazepam INTENSOL 2 MG/ML BC PRN (23:00)
[2019-05-19 00:14] VITALS: BP 104/68
[2019-05-19] MEDS: ZOLPIDEM 5MG TABLET PO PRN ×2 (02:33→22:19)
[2019-05-19] MEDS: LORazepam INTENSOL 2 MG/ML BC PRN ×3 (06:02→18:21)
[2019-05-19 06:40] VITALS: BP 119/79
[2019-05-19] MEDS: ENOXAPARIN 40 MG/0.4 ML SQ SCH (08:55)
[2019-05-19 12:16] VITALS: BP 143/88
[2019-05-19] MEDS: CEFDINIR 300 MG CAPSULE PO SCH (18:35)
[2019-05-19 18:52] VITALS: BP 148/93
[2019-05-19] MEDS ORDERED: ONDANSETRON ODT 4 MG ONE (21:09)
[2019-05-19] MEDS ORDERED: ONDANSETRON 4 MG TABLET PO PRN ×2 (21:30)
[2019-05-20 00:02] VITALS: BP 123/78
[2019-05-20 06:50] VITALS: BP 134/78
[2019-05-20] MEDS: CEFDINIR 300 MG CAPSULE PO SCH (09:00)
[2019-05-20] MEDS: ENOXAPARIN 40 MG/0.4 ML SQ SCH (09:00)
[2019-05-20] MEDS ORDERED: CEFD300C37 PO (09:37)
[2019-05-20 11:41] VITALS: BP 128/81
== END 2019-05-20 12:12 | disposition hospice, home (50) | DRG 180 ==
LOC: ED 18:11 → EDIP 18:12 → ED 18:15 → 4NW 18:24 → ED 18:24 → 4NW 18:24 → ED 18:35
PROVIDERS: ADMIT Internal Medicine; ATTEND Internal Medicine
DX: C78.00 Secondary malignant neoplasm of unspecified lung (principal); E43 Unspecified severe protein-calorie malnutrition; C20 Malignant neoplasm of rectum; C79.51 Secondary malignant neoplasm of bone; F33.9 Major depressive disorder, recurrent, unspecified; N39.0 Urinary tract infection, site not specified; R62.7 Adult failure to thrive; G47.00 Insomnia, unspecified; Z85.048 Personal history of other malignant neoplasm of rectum, rectosigmoid junction, and anus; Z88.8 Allergy status to other drugs, medicaments and biological substances; B96.20 Unspecified Escherichia coli [E. coli] as the cause of diseases classified elsewhere; E03.9 Hypothyroidism, unspecified; I10 Essential (primary) hypertension; Z66 Do not resuscitate; Z80.9 Family history of malignant neoplasm, unspecified; Z93.3 Colostomy status; Z68.31 Body mass index [BMI] 31.0-31.9, adult; R06.09 Other forms of dyspnea
CPT/HCPCS: 36415; 71045; 80053; 81001; 84484; 85025; 87077; 87086; 87186; 93005; G0378; Q0162

== ENCOUNTER 2019-05-22 13:47 | Emergency (ER) | payer MEDICAID, MEDICARE ==
[~2019-05-22] VITALS: Ht 157.5 cm; Wt 75.0 kg
[~2019-05-22 13:47] MED LIST changes: +CEFD300C37 PO; +LORAZEPAM
--- NOTE | 2019-05-22 15:05 | NUR ---
REPORT RECEIVED FROM BRITNI OTRIZ. ASSUMED CARE OF PT.
--- NOTE | 2019-05-22 15:21 | NUR ---
PT REQUESTING A PHONE CALL TO HER BF CATRACHO AND LET HIM KNOW SHE IS IN THE ED. CATRACHO PHONE NO. .
--- NOTE | 2019-05-22 15:36 | NUR ---
PT CURRENTLY RESTING ON GURNEY. NAD NOTED. SKIN SLIGHTLY PALE, WARM AND DRY. RESP EVEN AND UNLABORED. PT AO X 4. PT AWARE THAT WE ARE WAITING ON RECHECK BY JEFF WASHBURN. PT REQUESTED THAT BOYFRIEND BE CALLED AND REQUESTED THAT HE BRING PHONE PRODUCTION CONTROL SUPERVISOR. BOYFRIEND STATES THAT HE WILL BE ABLE TO BE HERE WITHIN AN HOUR.
--- NOTE | 2019-05-22 15:55 | NUR ---
REPORT FROM BRITNI LOZANO TO ASSUME CARE OF PT. PT RESTING IN ROOM. NO NEEDS EXPRESSED. AWAITING DISPO.
--- NOTE | 2019-05-22 15:58 | NUR ---
REPORT TO BRITNI FISHER WHO ASSUMED CARE OF PT.
--- NOTE | 2019-05-22 16:42 | NUR ---
PER PT, UNSURE IF CATRACHO WILL BE HOME TO UNLOCK DOOR TO HOUSE. ATTEMPTED TO CALL CATRACHO X2 WITH NO ANSWER.
[2019-05-22] MEDS ORDERED: OXYcodone/APAP 5/325MG TABLET ONE (17:39)
--- NOTE | 2019-05-22 17:42 | NUR ---
PT REFUSING PERCOCET.
[2019-05-22] MEDS ORDERED: OXYcodone IR 5MG TABLET ONE (17:46)
--- NOTE | 2019-05-22 17:51 | NUR ---
CARE FOR DC ONLY PROVIDED. PT WAS LAYING ON GURNEY, MULTIPLE COMPLAINTS VERBALIZED. "MY BACK HURTS, I CANT BELIEVE IT" PT SO AT BEDSIDE WITH W/C. PT ABLE TO MOVE TO SITTING POSITION. MOVES SLOWLY. C/O PAIN WITH ALL MOVEMENT. PT ABLE TO TRANSFER TO W/C WITH SBA. DARCI NGUYỄN AT BEDSIDE. RN AND SW DISCUSSED WITH MD, MEDICATING PT PRIOR TO LEAVING R/T PAIN. MD PRESCRIBED PERCOCET 5/325 2 TABS. PT REFUSED "I CANT TAKE THAT IT GIVES ME NIGHTMARES" WAS DETERMINED THAT THE ACETAMINOPHEN GIVES NIGHTMARES. DISCUSSED WITH DR WASHBURN. OCYCODONE IR 5MG ORDERED AND GIVEN TO PT. PT UNDER THE CARE OF HOSPICE. HOSPICE PROVIDER TO MEET PT AND SO AT THEIR HOME AND REASSESS PT PAIN. PT HAS PAIN MEDICATIONS AT HOME. PT LEFT VIA W/C WITH FAMILY.
[2019-05-22 17:58] VITALS: BP 154/94
[2019-05-22] MEDS ORDERED: OXYcodone IR 5MG TABLET PO PRN (18:00)
[2019-05-22] MEDS ORDERED: OXYcodone/APAP 10/325MG TABLET PO ONE (18:00)
== END 2019-05-22 18:01 | disposition home or self-care (01) ==
LOC: ED 14:58
DX: S39.012A Strain of muscle, fascia and tendon of lower back, initial encounter (principal); C18.9 Malignant neoplasm of colon, unspecified; R53.81 Other malaise; I10 Essential (primary) hypertension; W01.0XXA Fall on same level from slipping, tripping and stumbling without subsequent striking against object, initial encounter; Y93.89 Activity, other specified; Y92.009 Unspecified place in unspecified non-institutional (private) residence as the place of occurrence of the external cause; Y99.8 Other external cause status
CPT/HCPCS: 72110; 99283

== ENCOUNTER 2019-05-26 18:08 | Inpatient (IN) | payer OTHER ==
[~2019-05-26] VITALS: Ht 157.5 cm; Wt 78.4 kg
[2019-05-26] MEDS ORDERED: SODIUM CHLORIDE 0.9% 1,000 ML IV SCH (20:10)
[2019-05-26 20:20] VITALS: BP_SYST 108; BP_SYST 139; BP_DIAS 60; BP_DIAS 89
[2019-05-26] MEDS ORDERED: MORPHINE SULFATE 4 MG/ML, 1ML IVPush PRN ×3 (20:30)
[2019-05-26] MEDS ORDERED: LIDOCAINE/PRILOCAINE CRM W/TEG 5GM TP ONE (20:30)
[2019-05-26] MEDS ORDERED: SCOPOLAMINE PATCH, 1.5MG PATCH.TD72 TD SCH (20:30)
[2019-05-27] MEDS: LORazepam 2 MG/ML, 1ML IVPush PRN (10:00)
[2019-05-27] MEDS ORDERED: LORazepam 2 MG/ML, 1ML IVPush PRN (14:00)
[2019-05-28] MEDS: LORazepam 2 MG/ML, 1ML IVPush PRN ×3 (05:27→09:57)
[2019-05-28] MEDS: ATROPINE OPHTH SOLN 1%, 5ML BC PRN ×2 (05:40→07:22)
== END 2019-05-28 15:50 | disposition expired | DRG 947 ==
LOC: 4NW 20:03
PROVIDERS: ADMIT Internal Medicine; ATTEND Internal Medicine
DX: G89.3 Neoplasm related pain (acute) (chronic) (principal); G93.41 Metabolic encephalopathy; C20 Malignant neoplasm of rectum; J91.0 Malignant pleural effusion; C79.51 Secondary malignant neoplasm of bone; C78.00 Secondary malignant neoplasm of unspecified lung; Z51.5 Encounter for palliative care; E03.9 Hypothyroidism, unspecified; F32.9 Major depressive disorder, single episode, unspecified; R62.7 Adult failure to thrive; Z66 Do not resuscitate; Z85.048 Personal history of other malignant neoplasm of rectum, rectosigmoid junction, and anus; Z93.3 Colostomy status
CPT/HCPCS: G0378; J2270; J2060